=== PATIENT | male | born 1975 | race Caucasian/White ===

== ENCOUNTER 2023-07-28 13:22 | Outpatient (CLI) | payer OTHER, SELFPAY | END 2023-07-28 13:23 | disposition home or self-care (01) | LOC: ANHSURGERY 13:26 | PROVIDERS: Visit Provider Surgery | DX: Z01.818 Encounter for other preprocedural examination (principal); K42.9 Umbilical hernia without obstruction or gangrene | CPT/HCPCS: 36415; 86850; 86900; 86901 ==

== ENCOUNTER 2023-07-31 03:39 | Day surgery (SDC) | payer OTHER, SELFPAY ==
[2023-07-23 11:54] VITALS: BMI 31.1
--- NOTE | 2023-07-23 11:58 | PC.NURSE ---
Report to the Outpatient Waiting Room, entrance under the green pavilion located off [facility], at time 10:00 on date 07/31/23. Planned Procedure Time: 12:00. Time changes happen often and if your time is changed the preop area will call you the afternoon before. - You and your visitor will be asked to self-screen and do not enter if you have any COVID symptoms. - A mask is optional within the hospital at this time. Patients may have clear liquids (water, carbonated beverages, clear teas, apple juice) until 3 hours prior to surgery (9:00) with a maximum of 20 ounces. - No food from midnight until time of surgery Take the following medications with a SIP of water the morning of surgery: XANAX IF NEEDED DO NOT STOP ANY OF YOUR OTHER PRESCRIPTION MEDICATIONS PRIOR TO SURGERY ?EXCEPT THE FOLLOWING Medications to discontinue per physician: N/A Date to take last dose: N/A Please no make-up, nail lao, hairspray, perfume, deodorant, or body powder the day of surgery. No jewelry (including any body piercings) or valuables the day of surgery, leave them at home. Please take a shower or bath the night before, or the morning of, surgery with an antibacterial soap. Wear comfortable, loose fitting clothing. - Jewelry must be removed prior to entering the operating room. Rings and piercings that are not removed may be cut off. - The hospital will not accept responsibility for valuables. - Please leave all valuables, including medications, at home the day of surgery. If you are going home after surgery, a licensed rolloff driver must drive you home. - NO public transportation without another adult if you receive anesthesia. - We recommend that an adult stay with you for 24 hours following discharge. - We also recommend that you do not drive, make important decision, drink alcoholic beverages, or take any drugs that were not prescribed by your health care provider for at least 24 hours after your discharge time. Follow any additional instructions given to you from your surgeon. If you or anyone in your household have experienced Covid symptoms in the past week, please notify your surgeon or the nurse liaison at the phone number below for possible testing. Telephone instructions given to PT - CINTIA RODRIGUEZ and asked if any additional questions and then verbalized understanding. Patient advised to call surgeon office or pre surgery nurse liaison [phone] if any additional questions.
--- NOTE | 2023-07-30 16:47 | PM.SD2 ---
Same Day Admit/Disch: HPI History of Present Illness Chief complaint: Umb Hernia Narrative: Gabe Hughes Jr. is a 48 year old male who noticed a bulge just above his umbilicus last February. It is occasionally painful especially when having a bowel movement and bending over. He was seen in the office and found to have an umbilical hernia with a 2 cm defect. He is taken to surgery at this time for robotic laparoscopic repair with mesh. Patient is HIV positive. [facility] Past Medical History Medical History Anxiety HIV (human immunodeficiency virus infection) Kidney stones Seizure Surgical History Surgical History History of placement of ear tubes History of tonsillectomy and adenoidectomy Family History Family History Other Diabetes mellitus Heart disease Social History Social History Smoking status: Never smoker Alcohol intake: current Alcohol use details: SPECIAL OCCASIONS ONLY Substance use: never Substance use type: does not use Living arrangements: with family Occupation/Education: occupation Additional occupation/education comments: [employer] Division Spiritual care concerns: No Same Day Admit/Disch: Med Pre-admit Medications Home Medications Medication Instructions Recorded Confirmed Type alprazolam 0.25 mg tablet (Xanax) 0.25 mg PO QHS PRN Anxiety 05/29/23 07/23/23 History dolutegravir 50 mg-lamivudine 300 1 tablet PO HS 07/23/23 07/23/23 History mg tablet (Dovato) ketorolac 10 mg tablet 10 mg PO Q6H 4 days #16 tabs 07/31/23 Rx oxycodone-acetaminophen 5 mg-325 0.5 - 1 tablet PO Q6H PRN pain #10 07/31/23 Rx mg tablet tabs Review of Systems Review of Systems All systems reviewed & are unremarkable except as noted in HPI and below (HPI) Exam Const: General: comfortable, no acute distress, alert and awake HENMT: Head: normocephalic and atraumatic Mouth: Yes Normal oral and palatal mucosa present Eyes: Conjunctivae: conjunctivae normal Pupils: Equal, round and reactive pupils present EOM: EOMs intact bilaterally Neck: Neck: normal visual inspection, no lymphadenopathy and nontender Resp: Effort & Inspection: normal respiratory effort Auscultation: clear to auscultation bilaterally Cardio: Rate: regular rate Rhythm: regular rhythm Heart sounds: no gallops, no murmurs and no rubs GI: Inspection: non-distended, visible herniation (Umbilical) and other (Also has diastasis of midline linea alba) GI Palp: Yes Soft to palpation, No Tenderness to palpation present (GI), No Hepatomegaly present, No Splenomegaly present, Yes Hernia present umbilical < 3 cm (2 cm defect) and Yes Other GI palpation findings present (Diastasis) Auscultation: normal bowel sounds Skin: Lesions: no lesions Rashes: no rashes Neuro: General: no focal motor deficits and CN's II-XI intact bilaterally Cranial nerves: Yes Equal, round and reactive pupils present, Yes Bilaterally intact EOM present, Yes facial symmetry and Yes Midline tongue present Speech: normal speech Motor exam (neuro): 5/5 motor strength present throughout and Motor abnormalities not present Extrem: General: no clubbing, cyanosis or edema and edema Psych: Affect: normal affect Thought process: Normal thought process present Insight: Good insight present (Psych) DS: Summary Time Spent with Patient Time attestation: Total time spent providing and/or coordinating discharge services: DS: Admitting Diagnosis Discharge Date 07/31/2023 Admitting Diagnosis Symptomatic umbilical hernia, 2 cm defect. I discussed surgical treatment of this and have recommended robotic laparoscopic repair with mesh. I discussed the procedure, alternatives, risks, benefits. All questions were answered. He understands and agrees to
[2023-07-31] VITALS (10 sets, daily range): BP systolic 115–137; BP diastolic 75–98; PULSE 65–101; RESP 12–18; TEMP 36.2–36.8; O2SAT 95–100
[2023-07-31] MEDS: ACETAMINOPHEN 500 MG TABLET 1000 MG PO (10:02)
[2023-07-31] MEDS: LACTATED RINGERS 1,000 ML 30 ML IV CONT ×2 (10:29→14:45)
[2023-07-31] MEDS: KETOROLAC 15 MG/ML VIAL (*BKC) IV PUSH ×2 (10:30→15:44)
--- NOTE | 2023-07-31 11:45 | WPDHPUPDATE1 ---
History and Physical Update Update Date/Time: 07/31/23 11:45 History and Physical has been reviewed, including an updated exam of the patient. There are NO changes in the patient's condition. Risks, benefits, and alternatives have been discussed and questions answered. Patient agrees to proceed with procedure.
--- NOTE | 2023-07-31 12:00 | P.PNAN_ITS ---
Anes - Initial Pre Proc Eval Procedure: Operation Date: 07/31/23 12:00 Proposed Procedures p Robotic Laparoscopic Repair of Umbilical Hernia with Mesh - Mayito Boyer MD Date/Time: 07/31/23 12:00 Surgeon: Mayito Boyer MD Pre Op Diagnosis: Umb Hernia Patient Data Age: 48 Gender: M Height: 1.83 m Weight: 109 kg Last Vital Signs Temp 98.2 F 07/31/23 10:10 Pulse 101 H 07/31/23 10:10 Resp 18 07/31/23 10:10 BP 128/93 H 07/31/23 10:10 Pulse Ox 99 07/31/23 10:10 O2 Del Method Room Air 07/31/23 10:10 Allergies Allergy/AdvReac Type Severity Reaction Status Date / Time No Known Allergies Allergy Verified 07/31/23 10:01 Home Medications Medication Instructions Recorded Confirmed Type alprazolam 0.25 mg tablet (Xanax) 0.25 mg PO QHS PRN Anxiety 05/29/23 07/23/23 History dolutegravir 50 mg-lamivudine 300 1 tablet PO HS 07/23/23 07/23/23 History mg tablet (Dovato) Patient hx anesthesia problems: none Family hx anesthesia problems: none Results Review: All pre-operative results and documents have been reviewed as part of the pre- operative evaluation. 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 Informed Consent: The patient's anesthetic plan and its attendant risks and benefits were discussed with the patient/family/POA. Questions were solicited and answers provided to the satisfaction of the patient/family/POA.
[2023-07-31] MEDS: ceFAZolin 2 GM/D5W 50 ML 2 GM/50 ML BAG IVPB (12:03)
[2023-07-31] MEDS: BUPIVACAINE/EPINEPHRINE 0.5% 30 ML VIAL INFILTRATE (13:02)
--- NOTE | 2023-07-31 15:15 | W.PM.PROC2 ---
Procedure Note - Detailed Date of Procedure 07/31/23 Pre-op Diagnosis Umb Hernia with 2 cm defect Post-op Diagnosis Same Procedure Performed Robotic laparoscopic repair 2 cm umbilical hernia with mesh Surgeon Mayito Boyer MD Cardiovascular Lab Director Alisha BROWN Anesthesia General and Local Indications Patient has a small but tender umbilical hernia which has been painful especially within the last week. In the office, exam suggested a 2 cm umbilical hernia. He is taken to surgery now for robotic laparoscopic repair with mesh. Findings Defect was 2 cm. Hernia sac and chronically incarcerated properitoneal fat was adherent and very difficult to discern from the umbilical skin. Umbilical skin was opened and repaired robotically. 15 x [address] mesh was used for repair. Description of Procedure Patient was taken to surgery and induced into general anesthesia. A lift was placed under the left flank and the abdomen was prepped and draped. Trocars were placed in the usual fashion using NGRAIN optical trocars and a 5 mm camera. After all the ports had been placed with 8 mm robotic trocars, the robotic arms were brought into the field. The camera was docked and targeted. The instrument arms were docked and instruments placed. Surgeon went to the robotic console. Hernia was easily seen but contained quite a bit of properitoneal fat. I dissected the fatty tissue off the anterior abdominal wall down to the area of the hernia defect. I place traction on the properitoneal fat incarcerated in the hernia and then dissected all around the hernia sac. I then reduced the herniated contents. I tried to free the hernia sac from the skin but unfortunately created an opening in the skin. I then dissected just below this and removed the herniated contents and the sac back into the abdomen. I continued to dissect the properitoneal fat off the anterior abdominal wall both caudal to the defect and cephalad to the defect. I then exposed the umbilical skin injury and closed it with subcuticular 3-0 Vicryl interrupted suture. We then placed the 0 V lock suture in the abdomen and I closed the hernia defect which was 2 cm in diameter and pretty much circular. It was closed in transverse fashion with the 0 V lock. We then introduced the 10 x [address] hernia mesh. It was unrolled and the 0 V lock was passed through the center of the mesh. The mesh was placed on the anterior abdominal wall and the V lock suture was then used to secure the site of the hernia mesh to the anterior abdominal wall to the patient's left. 2-0 Stratafix was then introduced. Starting on the patient's right, a running 2-0 Stratafix was used to suture the edges of the mesh to the anterior abdominal wall. We continued this until all the edges of the periphery of the mesh were sutured to the anterior abdominal wall at the mesh was fairly taut and in good position. Three of these 2-0 Stratafix suture were required. The mesh was under mild tension and well secured to the anterior abdominal wall. There were no wrinkles or other abnormalities in the mesh placement. There was no evidence of bleeding. We then removed the suture needles. The robot was undocked after instruments were removed. Trocars were then removed. Skin wounds were closed with subcuticular 4-0 Monocryl skin suture. The wounds were dressed with Exofin surgical adhesive. The patient was awakened and taken to recovery in good condition. Sponge needle counts were correct x2. Implants 10 x [address] mesh Estimated Blood Loss -5 Drains No Packing No Pathology None sent Complications No immediate complications Condition Stable Disposition PACU [facility] Billing Surgery - Charge Forward: Surgery Billing (Robotic laparoscopic repair 2 cm umbilical hernia with mesh)
[2023-07-31] MEDS: fentaNYL CITRATE INJ (*CRX) 100 MCG/2 ML VIAL 25 MCG IV PUSH ×6 (16:23→16:50)
[2023-07-31] MEDS: oxyCODONE HCL (*CRX) 5 MG TAB IR PO (16:23)
== END 2023-07-31 17:29 | disposition home or self-care (01) ==
PROVIDERS: Visit Provider Surgery
PROC: (CPT 49592; principal; 2023-07-31 12:00)
DX: K42.0 Umbilical hernia with obstruction, without gangrene (principal); M62.08 Separation of muscle (nontraumatic), other site; Z21 Asymptomatic human immunodeficiency virus [HIV] infection status; Z79.899 Other long term (current) drug therapy
CPT/HCPCS: 49592; S2900; A9270; C1781; J0690; J1100; J1170; J1596; J1885; J2250; J2405; J2704; J3010; J7030; J7120

== ENCOUNTER 2025-01-03 08:04 | Emergency (ER) | payer OTHER, SELFPAY ==
[2025-01-03] VITALS (32 sets, daily range): BP systolic 122–149; BP diastolic 81–101; PULSE 56–96; RESP 14–20; TEMP 36.8; O2SAT 97–100
--- NOTE | ~2025-01-03 | XR_ITS ---
XR chest 1V portable Ordering provider: Brenda Wooten MD History: 49 years Male with . elev bnp . Comparison: None. FINDINGS: MEDIASTINUM: The cardiac silhouette is not enlarged. LUNGS: No infiltrates, effusions or pneumothorax. OTHER: No free air under the diaphragm. IMPRESSION: No acute cardiopulmonary pathology. Reviewed, dictated and finalized at location A.
--- NOTE | ~2025-01-03 | CT_ITS ---
EXAM: CT abdomen pelvis w con - 01/03/2025 11:13 CDT History: 49 years old Male with acute diarrhea X 6 days, syncopal episode, fever, nausea TECHNIQUE: Multidetector CT of the abdomen and pelvis with intravenous contrast. Coronal and sagitta l reformats were also provided for review. Automatic exposure control was used for this study. CONTRAST: 100 cc of Optiray 350 was used for this study. COMPARISON: None Available. FINDINGS: VISUALIZED CHEST: Visualized lungs are clear. ABDOMEN and PELVIS: LIVER: Mild focal fatty infiltration along the falciform ligament. GALLBLADDER: No calcified gallstones. BILE DUCTS: No dilatation. SPLEEN: Within normal limits. PANCREAS: Within normal limits. ADRENAL GLANDS: Within normal limits. KIDNEYS and URETERS: No hydronephrosis or hydroureter. No nephroureterolithiasis. URINARY BLADDER: Within normal limits. STOMACH and BOWEL: Multiple fluid-filled distended loops of small bowel are seen, a nonspecific findi ng and can be seen in enteritis. Normal appendix. REPRODUCTIVE ORGANS: Within normal limits. MESENTERY/PERITONEAL CAVITY: No free fluid or pneumoperitoneum. LYMPH NODES: No abdominal or pelvic lymphadenopathy. ABDOMINAL WALL: Bilateral fat-containing inguinal hernias. VASCULATURE: Within normal limits. MUSCULOSKELETAL: Multilevel degenerative changes of the spine. Multiple lucencies within the right il iac bone may represent bone cysts. Sclerotic focus in the left iliac bone may represent a bone island . IMPRESSION: 1. Multiple fluid-filled distended loops of small bowel are seen, nonspecific finding and can be see n in enteritis. Normal appendix. 2. Multiple lucencies within the right iliac bone, may represent bone cysts. Sclerotic focus in the left iliac bone may represent a bone island. Attention on follow-up imaging. Routine outpatient x-ray s of bilateral hip joints are recommended for further evaluation Reviewed, dictated and finalized at location A. IMPRESSION: 1. Multiple fluid-filled distended loops of small bowel are seen, nonspecific finding and can be seen in enteritis. Normal appendix. 2. Multiple lucencies within the right iliac bone, may represent bone cysts. S clerotic focus in the left iliac bone may represent a bone island. Attention on follow-up imaging. Routine outpatient x-rays of bilateral hip joints are recom mended for further evaluation
--- NOTE | 2025-01-03 08:51 | ECG_ITS ---
Test Date: 2025-01-03 09:27:20 Measurements Intervals [place] Rate: 74 P: 45 NH: 160 QRS: 30 QRSD: 106 T: 40 QT: 365 QTc: 407 Interpretive Statements SINUS RHYTHM DELAYED PRECORDIAL R/S TRANSITION CONSIDER INFERIOR INFARCT, AGE INDETERMINATE ABNORMAL ECG No previous ECG available for comparison Electronically Signed On 01-03-2025 09:37:09 CDT by Benjy Colindres D.O.
[2025-01-03 09:07] LABS: Basophils Percent Auto 0.3 % (0.2-1.2); Eosinophils Percent Auto 0.7 % (0-4.4); Hematocrit 44.9 % (42.0-52.0); Hemoglobin 15.1 g/dL (14.0-18.0); Immature Granulocyte Absolute 0.13 K/mm3 (0.00-0.031); Immature Granulocyte Percent A 2.2 % (0-0.5); Lymphocytes Absolute Auto 1.81 K/mm3 (0.9-3.2); Lymphocytes Percent Auto 30.8 % (18.3-44.2); Mean Corpuscular HGB Conc 33.6 g/dl (32-36); Mean Corpuscular Hemoglobin 31.6 pg (26-34); Mean Corpuscular Volume 93.9 fl (80-100); Mean Platelet Volume 9.7 fl (7.4-10.4); Monocytes Absolute Auto 0.5 K/mm3 (0.1-0.6); Monocytes Percent Auto 8.3 % (2.6-8.5); Neutrophils Absolute Auto 3.4 K/mm3 (1.3-6.7); Neutrophils Percent Auto 57.7 % (45.5-73.1); Platelet Count Result 156 k/mm3 (150-375); Red Blood Count 4.78 M/mm3 (4.6-6.20); Red Cell Distribution Width 12.3 % (11.5-14.5); White Blood Count 5.9 K/mm3 (4.5-10.0)
[2025-01-03 09:19] LABS: Alanine Aminotransferase 182 U/L (6-50); Alkaline Phosphatase 79 U/L (38-126); Anion Gap 10 mmol/L (4-12); Aspartate Amino Transferase 123 U/L (17-59); Bilirubin,Total 0.5 mg/dL (0.2-1.3); Blood Urea Nitrogen 11 mg/dL (9-20); Calcium 9.2 mg/dL (8.4-10.2); Carbon Dioxide 28 mmol/L (22-30); Chloride 102 mmol/L (98-107); Estimated CRCL calculation 84 ml/min; Estimated Glomerular Filt Rate > 60; Glucose 117 mg/dL (65-110); Potassium 3.9 mmol/L (3.4-5.0); Sodium 140 mmol/L (137-145); Total Protein 7.9 g/dL (6.3-8.2)
[2025-01-03 09:25] LABS: Add Urine Microscopic? NO; Appearance Urine Clear (Clear); Bilirubin Urine Negative (Negative); Blood Urine Negative (Negative); Color Urine Yellow (Yellow); Glucose Urine UA Negative (Negative); Ketones Urine Negative (Negative); Leukocyte Esterase Ur Negative LEU/UL (Negative); Nitrate Urine Negative (Negative); Protein Urine Negative (Negative); Specific Grav Ur 1.013 (1.001-1.035)
[2025-01-03 09:31] LABS: Troponin I < 0.012 ng/mL (0.000-0.034)
[2025-01-03 09:48] LABS: Influenza A QL RT-PCR Negative (Negative); Influenza B QL RT-PCR Negative (Negative); RSV RNA, RT-PCR Negative (Negative); SARS-CoV-2 RNA PCR Negative (Negative)
--- NOTE | 2025-01-03 10:18 | ED_ITS ---
HPI - Nausea/Vomiting/Diarrhea General Chief complaint: Nausea/Vomiting/Diarrhea Stated complaint: n/v/d, chills, syncope Time Seen by Provider: 01/03/25 08:46 Source: patient and other Mode of arrival: ambulatory Limitations: no limitations History of Present Illness HPI Narrative: Patient presents with report of nausea (no vomiting) and 9 days of diarrhea associated with fevers. Symptoms started while traveling, in [place]. Had similar foods as his partner who is not sick, no other sick contacts. He has had decreased p.o. intake. He was having some epigastric abdominal pain and also gas. He has previously had a colonoscopy which was normal. While at a baseball game he had a syncopal episode in that he became nauseated and felt like he might vomit so he stood up to walk away, going up stairs and this is when he lost muscle tone and consciousness. No alcohol had been consumed. This happened a few days ago. He became diaphoretic with movement. He does feel very fatigued lately. He had been evaluated in urgent care in tested negative for COVID and flu. He has been having myalgias particularly in his neck and head. He was initially having copious loose stools although he states this is letting up in terms of the frequency and that it is starting to become formed, soft. His skin felt sensitive at one point. While at the urgent care he was found to have some fluid in his left ear. Received IV fluids and nausea medication. He was told he had norovirus and that is liver function enzymes were elevated (doubled versus both in the 100s). He was told to switch from the ibuprofen that he had been taking 2 Tylenol he has done so. No shortness of breath. No history of heart failure. No blood in stool. Having excoriation/raw perineum from wiping. Experiencing hot flashes and excess fatigue. Confirm has a PCP. His PCP had noted that they would call in a prescription for doxy but not yet done/taking. Related Data Home Medications ?Medication ?Instructions ?Recorded ?Confirmed ?Last Taken ?Type alprazolam 0.25 mg tablet (Xanax) 0.25 mg PO QHS PRN Anxiety 05/29/23 09/23/23 Unknown History dolutegravir 50 mg-lamivudine 300 1 tablet PO HS 07/23/23 01/04/25 Unknown History mg tablet (Dovato) docusate sodium 100 mg tablet 100 mg PO TID 08/12/23 09/23/23 Unknown History tirzepatide 10 mg/0.5 mL 10 mg subcut WEEKLY 01/03/25 01/04/25 Unknown History subcutaneous pen injector (Mounjaro) Allergies Allergy/AdvReac Type Severity Reaction Status Date / Time No Known Allergies Allergy Verified 01/04/25 07:02 [facility] Past Medical History Medical History HIV (human immunodeficiency virus infection) Seizure Kidney stones Anxiety Surgical History Surgical History History of colonoscopy H/O umbilical hernia repair Robotic laparoscopic repair 2 cm umbilical hernia with mesh 07/31/23 SHAHID History of placement of ear tubes History of tonsillectomy and adenoidectomy Family History Family History Other Diabetes mellitus Heart disease Social History Social History Smoking status: Never smoker Alcohol intake: current Alcohol use details: SPECIAL OCCASIONS ONLY Substance use: never Substance use type: does not use Living arrangements: with family Occupation/Education: occupation 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 HEAD: Normocephalic, atraumatic. EYES: Non injected, non icteric ENT: Nares clear, no rhinorrhea or epistaxis. Gross auditory acuity intact. Tacky mucous membranes NECK: Supple. No meningismus. CHEST: Speaking in full sentences. No respiratory distress. HEART: Regular rate and rhythm. . ABDOMEN: Soft, nondistended. No rigidity or guarding. Not peritoneal EXTREMITIES: Normal range of motion. No lower extremity edema. SKIN: Warm, dry, no rash. NEURO: No focal deficits. Alert and oriented. Answering questions. Following commands. Normal speech without aphasia or dysarthria. PSYCH: Normal mood and affect. Course Vital Signs Vital signs: Vital Signs Pulse Oximetry 100 01/03/25 08:23 Temperature 98.2 F 01/03/25 08:43 Pulse Rate 75 01/03/25 14:31 Respiratory Rate 20 01/03/25 14:31 Blood Pressure 143/94 H 01/03/25 14:31 Pulse Oximetry 100 01/03/25 14:31 Oxygen Delivery Room Air 01/03/25 08:43 MDM - Nausea/Vomiting/Diarrhea MDM Narrative Medical decision making narrative: Patient presents with 9 days of diarrhea as well as nausea, intermittent fevers, and a syncopal episode a few days ago. In the emergency department he is afebrile with acceptable vital signs, elevated diastolic blood pressure . DIFFERENTIAL DAIGNOSIS The differential for acute ( less than 14d) diarrhea includes infectious etiologies (viral, preformed toxins, toxins formed after colonization, invasive bacteria, and parasites), medications, inflammatory causes (IBD, radiation enteritis, ischemic colitis, diverticulitis), malabsorption, secretory causes, or motility disorders. Traveler's diarrhea, food poisoning, gastroenteritis, Clostridium difficile infection, drug induced, dehydration Given history of HIV per EMR also considered: Esophagitis, enteric 0 colitis, GI bleed (CMV, Kaposi, lymphoma), diarrhea secondary to Cryptosporidum, Isospora; hepatitis, proctitis [place] Syncope Rule: Congestive heart failure history: 0* (see below) Hematocrit <30%: No EKG abnormal (changed or any non-sinus rhythm): No SOB symptoms: No SBP <90mmHg at triage: No LFTs are elevated in the 100s with no prior for comparison other than patient noted that they were similar range when seen at urgent care recently. BNP is borderline as it approaches the reference range of the assay for patient's age to suggest acute heart failure. No evidence of volume overload on exam or chest xray. Patient's heart rate increases by nearly 40 and his systolic blood pressure changes by nearly 20 on orthostatic assessment. Will give 2nd L IV fluids. Orthostats still similar although patient feeling much better. Discussed possiblity of observation admission for further IV fluids but patient can otherwise tolerate p.o. and feels able to do so at home. This is very reasonable given his age. Notified of the incidental findings on CT scan regarding bones. Lab Data Attestation: I reviewed the patient's lab results. 01/03/25 08:59 01/03/25 08:59 Labs: Lab Results 01/03/25 01/03/2501/03/25 Range/Units 08:59 09:00 09:14 WBC 5.9 (4.5-10.0) K/mm3 RBC 4.78 (4.6-6.20) M/mm3 Hgb 15.1 (14.0-18.0) g/dL Hct 44.9 (42.0-52.0) % MCV 93.9 (80-100) fl MCH 31.6 (26-34) pg MCHC 33.6 (32-36) g/dl RDW 12.3 (11.5-14.5) % Plt Count 156 (150-375) k/mm3 MPV 9.7 (7.4-10.4) fl Immature Gran % (Auto) 2.2 H (0-0.5) % Neut % (Auto) 57.7 (45.5-73.1) % Lymph % (Auto) 30.8 (18.3-44.2) % Centre % (Auto) 8.3 (2.6-8.5) % Eos % (Auto) 0.7 (0-4.4) % Baso % (Auto) 0.3 (0.2-1.2) % Lymph # (Auto) 1.81 (0.9-3.2) K/mm3 [place] # (Auto) 0.5 (0.1-0.6) K/mm3 Eos # (Auto) 0.0 (0-0.3) K/mm3 Baso # (Auto) 0.0 (0.0-0.1) K/mm3 Abs Immat Gran (auto) 0.13 H (0.00-0.031) K/mm3 Absolute Neuts (auto) 3.4 (1.3-6.7) K/mm3 Absolute Nucleated RBC 0.000 (0.0-0.012) K/mm3 Nucleated RBC % 0.0 (0.0-0.2) % PT 12.5 (11.1-14.7) Seconds INR 0.9 APTT 31.8 (22.3-36.8) Seconds Sodium 140 (137-145) mmol/L Potassium 3.9 (3.4-5.0) mmol/L Chloride 102 (98-107) mmol/L Carbon Dioxide 28 (22-30) mmol/L Anion Gap 10 (4-12) mmol/L BUN 11 (9-20) mg/dL Creatinine 1.03 (0.7-1.3) mg/dL Estim Creat Clear Calc 84 ml/min Estimated GFR > 60 (59 - ) Glucose 117 H (65-110) mg/dL Calcium 9.2 (8.4-10.2) mg/dL Magnesium 2.1 (1.6-2.3) mg/dL Total Bilirubin 0.5 (0.2-1.3) mg/dL AST 123 H (17-59) U/L ALT 182 H (6-50) U/L Alkaline Phosphatase 79 (38-126) U/L Troponin I < 0.012 (0.000-0.034) ng/mL NT-Pro-B Natriuret Pep 413 H (19.9-100) pg/mL Total Protein 7.9 (6.3-8.2) g/dL Albumin 4.0 (3.5-5.1) g/dL Lipase 217 (23-300) U/L Urine Color (Yellow) Urine Appearance (Clear) Urine pH (5.0-9.0) Ur Specific [place] (1.001-1.035) Urine Protein (Negative) mg/dL Urine Glucose (UA) (Negative) mg/dL Urine Ketones (Negative) mg/dL Ur Blood (Man) (Negative) Urine Nitrate (Negative) Urine Bilirubin (Negative) Urine Urobilinogen (<2.0) mg/dL Leukocyte Esterase Rfl (Negative) ROB/UL Urine Opiates Screen Negative (Negative) Urine Methadone Screen Negative (Negative) Acetaminophen < 10 L (10-30) ug/mL Ur Barbiturates Screen Negative (Negative) Ur Phencyclidine Scrn Negative (Negative) Ur Amphetamine Screen Negative (Negative) U Benzodiazepines Scrn Negative (Negative) Urine Cocaine Screen Negative (Negative) U Cannabinoids Screen Negative (Negative) C. difficile (PCR) (NEGATIVE) Influenza A (RT-PCR) Negative (Negative) Influenza B (RT-PCR) Negative (Negative) RSV (RT-PCR) Negative (Negative) SARS-CoV-2 RNA (RT-PCR) Negative (Negative) 01/03/25 01/03/25 Range/Units 09:15 11:25 WBC (4.5-10.0) K/mm3 RBC (4.6-6.20) M/mm3 Hgb (14.0-18.0) g/dL Hct (42.0-52.0) % MCV (80-100) fl MCH (26-34) pg MCHC (32-36) g/dl RDW (11.5-14.5) % Plt Count (150-375) k/mm3 MPV (7.4-10.4) fl Immature Gran % (Auto) (0-0.5) % Neut % (Auto) (45.5-73.1) % Lymph % (Auto) (18.3-44.2) % Centre % (Auto) (2.6-8.5) % Eos % (Auto) (0-4.4) % Baso % (Auto) (0.2-1.2) % Lymph # (Auto) (0.9-3.2) K/mm3 [place] # (Auto) (0.1-0.6) K/mm3 Eos # (Auto) (0-0.3) K/mm3 Baso # (Auto) (0.0-0.1) K/mm3 Abs Immat Gran (auto) (0.00-0.031) K/mm3 Absolute Neuts (auto) (1.3-6.7) K/mm3 Absolute Nucleated RBC (0.0-0.012) K/mm3 Nucleated RBC % (0.0-0.2) % PT (11.1-14.7) Seconds INR APTT (22.3-36.8) Seconds Sodium (137-145) mmol/L Potassium (3.4-5.0) mmol/L Chloride (98-107) mmol/L Carbon Dioxide (22-30) mmol/L Anion Gap (4-12) mmol/L BUN (9-20) mg/dL Creatinine (0.7-1.3) mg/dL Estim Creat Clear Calc ml/min Estimated GFR (59 - ) Glucose (65-110) mg/dL Calcium (8.4-10.2) mg/dL Magnesium (1.6-2.3) mg/dL Total Bilirubin (0.2-1.3) mg/dL AST (17-59) U/L ALT (6-50) U/L Alkaline Phosphatase (38-126) U/L Troponin I (0.000-0.034) ng/mL NT-Pro-B Natriuret Pep (19.9-100) pg/mL Total Protein (6.3-8.2) g/dL Albumin (3.5-5.1) g/dL Lipase (23-300) U/L Urine Color Yellow (Yellow) Urine Appearance Clear (Clear) Urine pH 7.0 (5.0-9.0) Ur Specific [place] 1.013 (1.001-1.035) Urine Protein Negative (Negative) mg/dL Urine Glucose (UA) Negative (Negative) mg/dL Urine Ketones Negative (Negative) mg/dL Ur Blood (Man) Negative (Negative) Urine Nitrate Negative (Negative) Urine Bilirubin Negative (Negative) Urine Urobilinogen 1.0 (<2.0) mg/dL Leukocyte Esterase Rfl Negative (Negative) ROB/UL Urine Opiates Screen (Negative) Urine Methadone Screen (Negative) Acetaminophen (10-30) ug/mL Ur Barbiturates Screen (Negative) Ur Phencyclidine Scrn (Negative) Ur Amphetamine Screen (Negative) U Benzodiazepines Scrn (Negative) Urine Cocaine Screen (Negative) U Cannabinoids Screen (Negative) C. difficile (PCR) Negative (NEGATIVE) Influenza A (RT-PCR) (Negative) Influenza B (RT-PCR) (Negative) RSV (RT-PCR) (Negative) SARS-CoV-2 RNA (RT-PCR) (Negative) Imaging Data Radiologist's impression: IMPRESSION: 1. Multiple fluid-filled distended loops of small bowel are seen, nonspecific finding and can be seen in enteritis. Normal appendix. 2. Multiple lucencies within the right iliac bone, may represent bone cysts. Sclerotic focus in the left iliac bone may represent a bone island. Attention on follow-up imaging. Routine outpatient x-rays of bilateral hip joints are recommended for further evaluation IMPRESSION: No acute cardiopulmonary pathology. ECG Data EKG #1: Attestation: I personally reviewed and interpreted this ECG as follows: ECG completion date: 01/03/25 ECG completion time: 09:27 Interpretation: Normal sinus rhythm at a rate of 74 beats per minute. TN interval 160. QRS 106. QT/QTC 365/393. Good R-wave progression across the precordial leads. T- wave flattening in 3 but otherwise upright in normal in contiguous inferior leads. No other T-wave inversions. Normal axis. Normal ECG. Discharge Plan Discharge Clinical Impression: Acute diarrhea, Transaminitis, Enteritis, Abnormal x-ray of pelvis, Elevated brain natriuretic peptide (BNP) level Patient Disposition: Home Condition: Stable Instructions: Antibiotic Form, Acute Diarrhea (ED), Enteritis (ED), Transaminitis (ED) Additional Instructions: As we discussed, your orthostatics vital signs were still slightly concerning however your received 2 L of IV fluids and were otherwise feeling better. Continue what you have been doing in terms of rest and maintain your hydration. Recommend following up with your primary care physician regarding the elevated BNP and liver enzymes. We discussed the incidental finding of : Multiple lucencies within the right iliac bone, may represent bone cysts. Sclerotic focus in the left iliac bone may represent a bone island. Attention on follow-up imaging. Routine outpatient x- rays of bilateral hip joints are recommended for further evaluation Your primary care physician can help arrange this. Do not hesitate to return to the emergency department any new, worsening, or unmanaged symptoms. Patient Language: [place] Island[place] Prescriptions: No Action alprazolam [Xanax] 0.25 mg tablet 0.25 mg PO QHS PRN (Reason: Anxiety) docusate sodium 100 mg tablet 100 mg PO TID Dovato 50-300 mg tablet 1 tablet PO HS Mounjaro 10 mg/0.5 mL pen injector 10 mg subcut WEEKLY simethicone 125 mg capsule 125 mg PO QID Qty: 20 0RF Rx Instructions: administer after meals and at bedtime dicyclomine 20 mg tablet 20 mg PO QID Qty: 20 0RF Follow-up/Referrals: PHYSICIAN,HAND SAMPLE MAKER [Primary Care Provider] - Stand Alone Forms: Work/School Release IP Time of Disposition: 14:43
[2025-01-03 10:40] LABS: Lipase 217 U/L (23-300); Magnesium 2.1 mg/dL (1.6-2.3)
[2025-01-03 10:49] LABS: NT Pro B Type Natriuretic Pept 413 pg/mL (19.9-100)
[2025-01-03 11:08] LABS: Amphetamine Screen Urine Negative (Negative); Barbiturate Screen Urine Negative (Negative); Benzodiazepines Screen Urine Negative (Negative); Cannabinoid Screen Urine Negative (Negative); Cocaine Screen Urine Negative (Negative); Methadone Screen Urine Negative (Negative); Opiate Screen Urine Negative (Negative); Phencyclidine Screen Urine Negative (Negative)
[2025-01-03] MEDS: ONDANSETRON INJ 4 MG/2 ML VIAL IV PUSH (11:14)
[2025-01-03] MEDS: SODIUM CHLORIDE 0.9% IV 1,000 ML 999 ML IV CONT ×2 (11:15→12:51)
[2025-01-03 11:58] LABS: Acetaminophen < 10 ug/mL (10-30)
[2025-01-03 12:00] LABS: INR 0.9; Prothrombin Time 12.5 Seconds (11.1-14.7)
[2025-01-03 12:01] LABS: Partial Thromboplastin Time 31.8 Seconds (22.3-36.8)
[2025-01-03 12:34] LABS: Toxigenic C. Diff NEGATIVE (NEGATIVE)
== END 2025-01-03 14:56 | disposition home or self-care (01) ==
PROVIDERS: Emergency Provider Student in an Organized Health Care Education/Training Program
DX: K52.9 Noninfective gastroenteritis and colitis, unspecified (principal); R74.01 Elevation of levels of liver transaminase levels; R79.89 Other specified abnormal findings of blood chemistry; R93.5 Abnormal findings on diagnostic imaging of other abdominal regions, including retroperitoneum; Z20.822 Contact with and (suspected) exposure to COVID-19; F41.9 Anxiety disorder, unspecified; Z21 Asymptomatic human immunodeficiency virus [HIV] infection status; Z87.442 Personal history of urinary calculi; R94.31 Abnormal electrocardiogram [ECG] [EKG]; Z79.899 Other long term (current) drug therapy; Z79.85 Long-term (current) use of injectable non-insulin antidiabetic drugs
CPT/HCPCS: 36415; 71045; 74177; 80053; 80143; 80307; 81003; 83690; 83735; 83880; 84484; 85025; 85610; 85730; 87045; 87177; 87209; 87427; 87449; 87493; 87637; 93005; 96361; 96374; 99284; J2405; J7030; Q9967

== ENCOUNTER 2025-01-04 06:51 | Emergency (ER) | payer OTHER, SELFPAY ==
[2025-01-04] VITALS (12 sets, daily range): BP systolic 126–134; BP diastolic 76–114; PULSE 57–92; RESP 10–18; TEMP 36.4; O2SAT 98–100
--- NOTE | ~2025-01-04 | US_ITS ---
Limited Abdominal Sonogram: Real-time sonographic imaging of the right upper quadrant was performed. Clinical History: Pain with eating Findings: The liver appears normal with no evidence of mass lesion or bile duct dilatation. Main por marilee vein demonstrates normal direction of flow. The gallbladder is well distended, and appears normal with no evidence of gallstone or wall thickening. The common bile duct measures 4 mm. The visualize d pancreas, aorta, and IVC are unremarkable. Impression: No significant abnormality seen. Reviewed, dictated and finalized at location . Impression: No significant abnormality seen.
--- NOTE | 2025-01-04 07:01 | ECG_ITS ---
Test Date: 2025-01-04 06:59:22 Measurements Intervals [place] Rate: 79 P: 61 ID: [id number] QRS: 40 QRSD: 101 T: 53 QT: 359 QTc: 413 Interpretive Statements SINUS RHYTHM MINIMAL Q WAVES- INFERIOR LEADS BASELINE ARTIFACT- I, III, AVL, V1-V3 BORDERLINE ECG Compared to ECG 01/03/2025 09:27:20 NO SIGNIFICANT CHANGE Electronically Signed On 01-04-2025 07:10:57 CDT by Benjy Colindres D.O.
[2025-01-04 07:09] LABS: Basophils Percent Auto 0.5 % (0.2-1.2); Eosinophils Percent Auto 0.5 % (0-4.4); Hematocrit 41.8 % (42.0-52.0); Hemoglobin 14.4 g/dL (14.0-18.0); Immature Granulocyte Absolute 0.12 K/mm3 (0.00-0.031); Immature Granulocyte Percent A 1.4 % (0-0.5); Lymphocytes Absolute Auto 2.06 K/mm3 (0.9-3.2); Lymphocytes Percent Auto 23.9 % (18.3-44.2); Mean Corpuscular HGB Conc 34.4 g/dl (32-36); Mean Corpuscular Hemoglobin 32.1 pg (26-34); Mean Corpuscular Volume 93.1 fl (80-100); Mean Platelet Volume 8.8 fl (7.4-10.4); Monocytes Absolute Auto 0.5 K/mm3 (0.1-0.6); Monocytes Percent Auto 6.1 % (2.6-8.5); Neutrophils Absolute Auto 5.8 K/mm3 (1.3-6.7); Neutrophils Percent Auto 67.6 % (45.5-73.1); Platelet Count Result 181 k/mm3 (150-375); Red Blood Count 4.49 M/mm3 (4.6-6.20); Red Cell Distribution Width 12.3 % (11.5-14.5); White Blood Count 8.6 K/mm3 (4.5-10.0)
[2025-01-04 07:24] LABS: Alanine Aminotransferase 124 U/L (6-50); Albumin Level 3.9 g/dL (3.5-5.1); Alkaline Phosphatase 80 U/L (38-126); Anion Gap 8 mmol/L (4-12); Aspartate Amino Transferase 63 U/L (17-59); Bilirubin,Total 0.6 mg/dL (0.2-1.3); Blood Urea Nitrogen 8 mg/dL (9-20); Calcium 8.9 mg/dL (8.4-10.2); Carbon Dioxide 28 mmol/L (22-30); Chloride 103 mmol/L (98-107); Estimated CRCL calculation 87 ml/min; Estimated Glomerular Filt Rate > 60; Glucose 110 mg/dL (65-110); Lipase 249 U/L (23-300); Potassium 3.7 mmol/L (3.4-5.0); Sodium 139 mmol/L (137-145); Total Protein 7.7 g/dL (6.3-8.2)
[2025-01-04 07:34] LABS: Giant Platelets Present; Large Platelets Present; Platelet Estimate Adequate (Adequate)
[2025-01-04 07:35] LABS: Atypical Lymphocytes Present; Schistocytes None Seen
[2025-01-04 07:36] LABS: Troponin I < 0.012 ng/mL (0.000-0.034)
[2025-01-04] MEDS: MORPHINE SULFATE (*CRX) 4 MG/ML INJ IV PUSH (07:46)
[2025-01-04] MEDS: ONDANSETRON INJ 4 MG/2 ML VIAL IV PUSH (07:46)
[2025-01-04] MEDS: SODIUM CHLORIDE 0.9% IV 1,000 ML 999 ML IV CONT (07:47)
--- NOTE | 2025-01-04 10:51 | ED_ITS ---
HPI - Nausea/Vomiting/Diarrhea General Chief complaint: Nausea/Vomiting/Diarrhea Stated complaint: n/v with back pain Time Seen by Provider: 01/04/25 06:59 History of Present Illness HPI Narrative: Patient is a 49-year-old male who presents ER with nausea vomiting. He had abdominal pain epigastrium that radiated to his back when eating. He has been dealing with diarrhea as well as vomiting last week. No fevers or chills. No syncope today. Did have some weakness while at a baseball game the other day. He has been in the ER evaluated with a CT scan that showed antritis. Liver enzymes were also elevated previously. Last dose of meds are was 1 week ago. Related Data Home Medications ?Medication ?Instructions ?Recorded ?Confirmed ?Last Taken ?Type alprazolam 0.25 mg tablet (Xanax) 0.25 mg PO QHS PRN Anxiety 05/29/23 09/23/23 Unknown History dolutegravir 50 mg-lamivudine 300 1 tablet PO HS 07/23/23 01/04/25 Unknown History mg tablet (Dovato) docusate sodium 100 mg tablet 100 mg PO TID 08/12/23 09/23/23 Unknown History tirzepatide 10 mg/0.5 mL 10 mg subcut WEEKLY 01/03/25 01/04/25 Unknown History subcutaneous pen injector (Mounjaro) Allergies Allergy/AdvReac Type Severity Reaction Status Date / Time No Known Allergies Allergy Verified 01/04/25 07:02 Review of Systems 2 Review of Systems: All systems reviewed & are unremarkable except as noted in HPI and below Constitutional: Constitutional: Reports no additional constitutional complaints Cardiovascular: Cardiovascular: Reports no additional cardiovascular complaints Respiratory: Respiratory: Reports no additional respiratory complaints Gastrointestinal: Gastrointestinal: Reports no additional gastrointestinal complaints Genitourinary: Genitourinary: Reports no additional male genitourinary complaints [facility] Past Medical History Medical History Anxiety HIV (human immunodeficiency virus infection) Kidney stones Seizure Surgical History Surgical History H/O umbilical hernia repair Robotic laparoscopic repair 2 cm umbilical hernia with mesh 07/31/23 SHAHID History of placement of ear tubes History of tonsillectomy and adenoidectomy Family History Family History Other Diabetes mellitus Heart disease Social History Social History Smoking status: Never smoker Alcohol intake: current Alcohol use details: SPECIAL OCCASIONS ONLY Substance use: never Substance use type: does not use Living arrangements: with family Occupation/Education: occupation 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 HEAD: Normocephalic, atraumatic. ENT: Mucous membranes moist. NECK: Supple. CHEST: Clear to auscultation. No respiratory distress. HEART: Regular rate and rhythm. Normal peripheral pulses. ABDOMEN: Soft, mild epigastric discomfort without guarding, nondistended. EXTREMITIES: Normal range of motion. No edema. SKIN: Warm, dry, no rash. NEURO: Alert and oriented x3. PSYCH: Normal mood and affect. Course Course Emergency Course: Liver enzymes trending down. Otherwise labs are unremarkable. Recommend not taking next Friday are dose. Follow-up with PCP. Patient has Zofran at home. Discharge with dicyclomine and simethicone. Vital Signs Vital signs: Vital Signs Temperature 97.6 F 01/04/25 06:54 Pulse Rate 92 01/04/25 06:54 Respiratory Rate 13 01/04/25 06:54 Blood Pressure 126/114 H 01/04/25 06:54 Pulse Oximetry 100 01/04/25 06:54 Temperature 97.6 F 01/04/25 06:54 Pulse Rate 57 L 01/04/25 10:05 Respiratory Rate 18 01/04/25 10:05 Blood Pressure 130/85 01/04/25 10:05 Pulse Oximetry 100 01/04/25 10:05 MDM - Nausea/Vomiting/Diarrhea Lab Data 01/04/25 07:03 01/04/25 07:03 Labs: Lab Results 01/04/25 Range/Units 07:03 WBC 8.6 (4.5-10.0) K/mm3 RBC 4.49 L (4.6-6.20) M/mm3 Hgb 14.4 (14.0-18.0) g/dL Hct 41.8 L (42.0-52.0) % MCV 93.1 (80-100) fl MCH 32.1 (26-34) pg MCHC 34.4 (32-36) g/dl RDW 12.3 (11.5-14.5) % Plt Count 181 (150-375) k/mm3 MPV 8.8 (7.4-10.4) fl Immature Gran % (Auto) 1.4 H (0-0.5) % Neut % (Auto) 67.6 (45.5-73.1) % Lymph % (Auto) 23.9 (18.3-44.2) % [place] % (Auto) 6.1 (2.6-8.5) % Eos % (Auto) 0.5 (0-4.4) % Baso % (Auto) 0.5 (0.2-1.2) % Lymph # (Auto) 2.06 (0.9-3.2) K/mm3 [place] # (Auto) 0.5 (0.1-0.6) K/mm3 Eos # (Auto) 0.0 (0-0.3) K/mm3 Baso # (Auto) 0.0 (0.0-0.1) K/mm3 Abs Immat Gran (auto) 0.12 H (0.00-0.031) K/mm3 Absolute Neuts (auto) 5.8 (1.3-6.7) K/mm3 Absolute Nucleated RBC 0.000 (0.0-0.012) K/mm3 Band Neutrophils % Not Reportable Nucleated RBC % 0.0 (0.0-0.2) % Atypical Lymphocytes Present Platelet Estimate Adequate (Adequate) Large Platelets Present Giant Platelets Present Schistocytes None seen Sodium 139 (137-145) mmol/L Potassium 3.7 (3.4-5.0) mmol/L Chloride 103 (98-107) mmol/L Carbon Dioxide 28 (22-30) mmol/L Anion Gap 8 (4-12) mmol/L BUN 8 L (9-20) mg/dL Creatinine 0.99 (0.7-1.3) mg/dL Estim Creat Clear Calc 87 ml/min Estimated GFR > 60 (59 - ) Glucose 110 (65-110) mg/dL Calcium 8.9 (8.4-10.2) mg/dL Total Bilirubin 0.6 (0.2-1.3) mg/dL AST 63 H (17-59) U/L ALT 124 H (6-50) U/L Alkaline Phosphatase 80 (38-126) U/L Troponin I < 0.012 (0.000-0.034) ng/mL Total Protein 7.7 (6.3-8.2) g/dL Albumin 3.9 (3.5-5.1) g/dL Lipase 249 (23-300) U/L Imaging Data Radiologist's impression: ITS Impressions Upper Quadrant Ultrasound 01/04/25 08:14 Impression: No significant abnormality seen. Discharge Plan Discharge Clinical Impression: Abdominal bloating with cramps Patient Disposition: Home Condition: Stable Instructions: Abdominal Pain (ED) Additional Instructions: Return to the emergency department if you develop severe abdominal pain, severe nausea and vomiting to the point where you are unable to keep down fluids, if you develop chest pain or difficulty breathing, blood in your stool, dizziness or fainting, or if you develop any other new or concerning symptoms as these could be signs of more serious medical illness. Try to stay well hydrated. Patient Language: [place] Prescriptions: New simethicone 125 mg capsule 125 mg PO QID Qty: 20 0RF Rx Instructions: administer after meals and at bedtime dicyclomine 20 mg tablet 20 mg PO QID Qty: 20 0RF No Action alprazolam [Xanax] 0.25 mg tablet 0.25 mg PO QHS PRN (Reason: Anxiety) docusate sodium 100 mg tablet 100 mg PO TID Dovato 50-300 mg tablet 1 tablet PO HS Mounjaro 10 mg/0.5 mL pen injector 10 mg subcut WEEKLY Follow-up/Referrals: Anika Carrillo DO [Physician] - 1 Week UNKNOWN,DOCTOR [Primary Care Provider] -
== END 2025-01-04 11:11 | disposition home or self-care (01) ==
PROVIDERS: Emergency Medicine; Emergency Provider Emergency Medicine
DX: R14.0 Abdominal distension (gaseous) (principal); R10.9 Unspecified abdominal pain; F41.9 Anxiety disorder, unspecified; Z21 Asymptomatic human immunodeficiency virus [HIV] infection status; Z87.442 Personal history of urinary calculi; Z79.899 Other long term (current) drug therapy; Z79.85 Long-term (current) use of injectable non-insulin antidiabetic drugs
CPT/HCPCS: 36415; 76705; 80053; 83690; 84484; 85025; 93005; 96361; 96374; 96375; 99284; J2270; J2405; J7030

== ENCOUNTER 2025-01-26 13:18 | Emergency (ER) | payer OTHER, SELFPAY ==
--- NOTE | ~2025-01-26 | CT_ITS ---
CT pelvis w con Ordering provider: Judy Mc MD History: . perianal abscess? h/o HIV . Comparison: January 03, 2025 Technique: CT pelvis without oral and IV contrast. . Automated exposure control and iterative recons truction technique were employed. The dose-length product was 389.01 mGy-cm. 100 mL Omnipaque 350 was given IV. Findings: BONES: No pelvic fracture or hip dislocation. Sclerotic lesion seen in the left iliac bone. Age appro priate degenerative changes of the visualized lower lumbar spine. The hip and sacroiliac joint spaces are well maintained. SUPERFICIAL SOFT TISSUES: Minimal fat stranding seen in the right and left buttock medially with no d efinite abscess formation. Bilateral inguinal lymph nodes are seen with the largest lymph node on the right side measures 2.2x1.2 cm. The left 1.5x 2.8 cm. Small bilateral inguinal hernias with fat cont ent. Otherwise, normal PELVIC ORGANS: The bladder is normal. No definite perianal abscess seen. Thickening in the skin in the medial right buttock is noted which may be inflammatory in nature. VISUALIZED BOWEL AND MESENTERY: Normal. No free air or free fluid. No lymphadenopathy. RETROPERITONEUM: Mild atheromatous disease. IMPRESSION: Inflammatory changes in the medial aspect of both buttocks with no definite perianal abscess. Follow- up advised. Inflammatory changes are also seen in the skin in the medial aspect of the buttocks more prominent on the right side. Bilateral inguinal lymphadenopathy. Bilateral small fat-containing inguinal hernias. Reviewed, dictated and finalized at location A. IMPRESSION: Inflammatory changes in the medial aspect of both buttocks with no definite per ianal abscess. Follow-up advised. Inflammatory changes are also seen in the skin in the medial aspect of the butt ocks more prominent on the right side. Bilateral inguinal lymphadenopathy. Bilateral small fat-containing inguinal hernias.
--- OUTSIDE RECORDS SUMMARY | 2025-01-26 13:21 | XMS_ITS | Data Portability ---
Author Organization [facility], [facility] Address [facility] [place] [address] Care Team Providers Care Glass Blowing Instructor Name Role Phone AGUSTIN WATT Referring Provider [phone] Encounter Date Assessment Date Assessment LastModified by Organization Details LastModified Time 04/09/2021 04/09/2021 RTC as scheduled or prn increased s/s. [email or web address] Not available 04/09/2021 13:33:02 07/02/2021 07/02/2021 RTC as scheduled or prn increased s/s [email or web address] Not available 07/02/2021 11:34:59 10/11/2021 10/11/2021 RTC as scheduled or prn increased s/s. kpercent Not available 10/12/2021 10:22:07 01/03/2022 01/03/2022 RTC as scheduled or prn increased s/s [email or web address] Not available 01/03/2022 12:20:36 Plan of Treatment Reminders Order Date Submit Date Provider Last Modified By Organization Details Last Modified Time Details Appointments None recorded. Lab vitamin B12, serum 2021 022 CATLIN [facility], [address], [place], [address], 05:01:34 HbA1c (hemoglobin A1c), blood 2021 022 CATLIN [facility], [address] [place], [address], 3 05:01:26 CMP, serum or plasma 2021 [facility], [address], [place], [address], 3 05:01:[address] [facility], [address], [place], [address], 3 05:01:13 T4, free, serum 2021 [facility], [address], [place], [address], 3 05:01:16 TSH, serum or plasma [address] [facility], [address], [place], [address], 3 05:01:12 urinalysis, complete 2021 [facility], [address], [place], [address], 3 05:01:49 gamma-gluta myl transferase (ggt), serum 2021 [facility], [address], [place], [address], 3 05:01:07 testosteron e, free + total, serum 2021 [facility], [address], [place], [address], 3 05:01:43 lipid panel, serum 2021 [facility], [address], [place], [address], 3 05:01:24 lymphocyte subset, flow cytometry (OBS) 2021 [facility], [address], [place], [address], 2 08:45:46 HbA1c (hemoglobin A1c), blood [address] [facility], [address], [place], [address], 3 05:01:42 CMP, serum or plasma [address] [facility], [address], [place], [address], 3 05:01:45 CBC 2021 022 [facility], [address], [place], [address], 3 05:01:50 TSH, serum or plasma 2021 022 [facility], [address], [place], [address], 3 05:01:25 T4, free, serum 2021 022 [facility], [address], [place], [address], 3 05:01:23 gamma-gluta myl transferase (ggt), serum 2021 022 [facility], [address], [place], [address], 3 05:01:32 lipid panel, serum [address] [facility], [address], [place], [address], 3 05:01:28 HbA1c (hemoglobin A1c), blood [address] [facility], [address], [place], [address], 2 09:00:06 CMP, serum or plasma [address] [facility], [address], [place], [address], 2 09:00:06 urinalysis, complete [address] [facility], [address], [place], [address], 2 09:00:06 TSH, serum or plasma [address] [facility], [address], [place], [address], 2 09:00:06 T4, free, serum [address] [facility], [address], [place], [address], 2 09:00:[address] [facility], [address], [place], [address], 2 09:00:07 lymphocyte subset, flow cytometry (OBS) 2020 022 [email or web address] [facility], [address], [place], [address], 2 09:08:19 lipid panel, serum 2020 022 [facility], [address], [place], [address], 2 09:00:06 testosteron e, free + total, serum 2020 022 [facility], [address], [place], [address], 2 09:00:06 vitamin B12, serum 2020 022 [facility], [address], [place], [address], 2 09:00:06 vitamin D, 25-hydroxy, total, serum 2020 021 [email or web address] [facility], [address], [place], [address], 2 09:27:44 HbA1c (hemoglobin A1c), blood 2020 022 [email or web address] [facility], [address], [place], [address], 2 09:27:41 CMP, serum or plasma 2020 022 [email or web address] [facility], [address], [place], [address], 2 09:27:41 CBC 2020 022 [email or web address] [facility], [address], [place], [address], 2 09:27:42 PSA, serum or plasma 2020 022 [email or web address] [facility], [address], [place], [address], 2 09:27:43 urinalysis, complete 2020 022 [email or web address] [facility], [address], [place], [address], 2 09:27:42 TSH, serum or plasma 2020 022 [email or web address] [facility], [address] [place], [address], 2 09:27:42 T4, free, serum 2020 022 [email or web address] [address] [facility], [address], [place], [address], 2 09:27:42 lipid panel, serum 2020 022 [email or web address] [address] [facility], [address] [place], [address], 2 09:27:43 gamma-gluta myl transferase (ggt), serum 2020 022 [facility], [address], [place], [address], 2 09:27:43 lymphocyte subset, flow cytometry (OBS) 2020 022 [email or web address] [facility], [address], [place], [address], 09:27:43 Referral None recorded. Procedures None recorded. Surgeries None recorded. Imaging US, echocardi lilian 2020 021 [email or web address] [facility], [facility], All Locations, [place], [address], 14:13:05 Medication Orders sildenafil 100 mg tablet 2021 022 CATLIN [facility] #73228, [address] [place] [address], [id number], 12:22:22 lisinopril 20 mg tablet 2021 CATLIN [facility]06425, [address] [place] [address], [id number], 10:24:17 Atripla 600 mg-200 mg-300 mg tablet 2021 CATLIN [facility] #12981, [address] [place] [address], [id number], 11:14:10 lisinopril 20 mg tablet 2020 021 CATLIN [facility] #20612, [address] [place] [address], [id number], 13:16:53 alprazolam 0.25 mg tablet 2020 021 [email or web address] [facility], [address] [place] [address], [id number], 07:42:58 fluoxetine 20 mg capsule 2020 021 CATLIN [facility] #62309, [address] [place] [address], [id number], 13:16:38 Atripla 600 mg-200 mg-300 mg tablet 2020 021 [facility], [address], [place], [place], [id number], 13:16:38 Patient TargetsNo targets recorded. Patient Instructions Encounter Date Encounter Id Patient Instructions Last Modified By Organization Details Last Modified Time 04/09/2021 [id number] Low fat, low CHO diet. Increase activity as tolerated. Continue current meds. F/u as scheduled with specialists. [email or web address] Not available 04/09/2021 13:33:06 07/02/2021 [id number] starting a weigh t loss plan: care instructions [email or web address] Not available 07/09/2021 08:40:02 starting a weigh t loss plan: care instructions [email or web address] Not available 07/09/2021 08:40:02 Anticipatory Guidance for preventive visits [email or web address] Not available 07/02/2021 11:32:12 Low fat, low CHO diet. Increase activity as tolerated. Continue current meds. F/u as scheduled with specialists. [email or web address] Not available 07/02/2021 11:35:09 10/11/2021 [id number] Low fat, low CHO diet. Increase activity as tolerated. Continue current meds. F/u as scheduled with specialists. [email or web address] Not available 10/12/2021 10:22:18 01/03/2022 [id number] Low fat, low CHO diet. Increase activity as tolerated. Continue current meds. F/u as scheduled with specialists. [email or web address] Not available 01/03/2022 12:20:44 Reason for Referral None Reported. Results Created Date Observation Date Name Description Value Unit Range Abnormal Flag Note LastModifiedBy Organization Detail LastModifiedTime Result Notes None recorded. Problems Name Problem SNOMED Code Status Onset Date Resolution Date Notes Provider Name and Address Organization Details Recorded Time Primary erectile dysfunction 499876729 Active 2021 GLORIA Powers - [facility], [facility] 11:49:05 Body mass index 30+ - obesity 943071804 Active 2018 Not Available [facility] 12:00:14 Human immunodeficie ncy virus infection 63832536 Active 2020 Not Available [facility] 12:00:14 Insomnia 641665205 Active 2020 Not Available [facility] 12:00:14 Hyperglycemia 93269552 Active 2020 Not Available [facility] 12:00:14 Anxiety 98926061 Active 2020 Not Available [facility] 12:00:14 Hypertensive disorder 26467929 Active 2020 Tameka Mason, 2ND PRESSMAN [address] [facility] [address], [place], [address] , [facility] - [employer] 18:10:53 Problem Notes None recorded. Procedures Surgical History Date Name Laterality Status Provider Name and Address Organization Details Recorded Time Tonsillectomy completed Heidy Oquendo [facility] [employer] 05/17/2019 08:15:07 Imaging Results None recorded. Procedure Notes None recorded. Medical Equipment None Reported. Allergies No known drug allergies Medications Name Sig Start Date Stop Date Status Note LastModified by Organization Details LastModified Time Prescript ion - Prior Authoriza tion Request active sildenaf il citrate 100 mg tabs Not Available Not Available Not Available fluconazo le 150 mg tablet Take 1 tablet every 72 hours by oral route. 07/02 completed Not Available Not Available Not Available lisinopri l 20 mg tablet TAKE 1 TABLET BY MOUTH EVERY DAY 2021 active Not Available Not Available Not Avai lable sildenafi l 100 mg tablet TAKE 1 TABLET BY MOUTH EVERY DAY active Not Available Not Available No t Available alprazola m 0.25 mg tablet Take 1 tablet 3 times a day by oral route as needed. 2021 active Not Available Not Available Not Avai lable lisinopri l 10 mg tablet Take 1 tablet every day by oral route. 05/17 completed Not Available Not Available Not Available zolpidem 10 mg tablet Take 1 tablet every day by oral route. 09/19 completed Not Available Not Available Not Available methylpre dnisolone 4 mg tablets in a dose pack TK UTD 05/17 completed Not Available Not Available Not Available albuterol sulfate HFA 90 mcg/actua tion aerosol inhaler INL 2 PFS PO Q 6 H PRN 2019 active Not Available Not Available Not Avai lable Klonopin 1 mg tablet Take 1 tablet every day by oral route at bedtime. 11/17 completed Not Available Not Available Not Available fluoxetin e 20 mg capsule Take 1 capsule every day by oral route. 2020 active Not Available Not Available Not Avai lable sertralin e 50 mg tablet TAKE 1 TABLET BY MOUTH EVERY DAY active Not Available Not Available No t Available Atripla 600 mg-200 mg-300 mg tablet TAKE ONE TABLET BY MOUTH ONCE DAILY ON AN EMPTY STOMACH. STORE IN ORIGINAL BOTTLE AT ROOM TEMPERAT URE. 2021 active Not Available Not Available Not Avai lable Trintelli x 10 mg tablet Take 1 tablet every day by oral route. 11/17 completed Not Available Not Available Not Available Paxlovid 300 mg (150 mg x 2)-100 mg tablets in a dose pack Take 1 dose pk every day by oral route as directed . 2021 active Not Available Not Available Not Avai labsara Vitals Date Recorded Body mass index (BMI) Body weight Systolic And Diastolic Provider Name and Address Organization Details Last Updated DateTime 10/11/2021 29.6 kg/m2 21489.14 g 150/78 mm[Hg] Tameka Percent, [address]ND PRESSMAN [address], [place], [address], [place] - [facility], [facility] 10/11/2021 11:05:26 Date Recorded Body height Provider Name an d Address Organization Details Last Updated DateTime 10/11/2021 182.88 cm Enedelia Casas [place] - [facility], [facility] 10/11/2021 10:58:44 Date Recorded Body mass index (BMI) Body weight Systolic And Diastolic Provider Name and Address Organization Details Last Updated DateTime 01/01/2021 28.1 kg/m2 99028.62 g 120/86 mm[Hg] Tameka Percent, [address]ND PRESSMAN [address], [place], [address], [facility], [facility] 01/01/2021 13:07:04 Date Recorded Body height Provider Name an d Address Organization Details Last Updated DateTime 01/01/2021 182.88 cm Enedelia [facility] [employer], [facility] 01/01/2021 13:03:06 Date Recorded Body height Body mass index (BMI) Body weight Systolic And Diastolic Provider Name and Address Organization Details Last Updated DateTime 01/03/2022 182.88 cm 28.5 kg/m2 85701.4 g 130/72 mm[Hg] Tameka Percent, [address]ND PRESSMAN [address], [place], [address], [facility], [facility] 01/03/2022 12:09:46 Date Recorded Body height Body mass index (BMI) Body weight Systolic And Diastolic Provider Name and Address Organization Details Last Updated DateTime 04/09/2021 182.88 cm 28.9 kg/m2 45934.17 g 130/78 mm[Hg] Tameka Percent, [address]ND PRESSMAN [address], [place], [address], [facility], [facility] 04/09/2021 13:15:30 Date Recorded Body height Body mass index (BMI) Body weight Systolic And Diastolic Provider Name and Address Organization Details Last Updated DateTime 07/02/2021 182.88 cm 29.2 kg/m2 23359.36 g 130/78 mm[Hg] Enedelia [facility], [facility] 07/02/2021 11:32:46 Social History Question Answer Notes LastModified by Organizat ion Details LastModified Time Tobacco Smoking Status Former Smoker Enedelia [facility], [facility] 07/02/2021 11:34:47 Do You Have An Advance Directive? No Information not available 05/17/2019 How Much Tobacco Do You Chew? None Information not available 05/17/2019 In The 14 Days Before Symptom Onset, Have You Had Close Contact With A Laboratory-confir med COVID-19 While That Case Was Ill? No Information not available 11/17/2020 In The 14 Days Before Symptom Onset, Have You Had Close Contact With A Person Who Is Under Investigation For COVID-19 While That Person Was Ill? No Information not available 11/17/2020 Have You Been To An Area Known To Be High Risk For COVID-19? No Information not available 11/17/2020 Which Illicit Or Recreational Drugs Have You Used? None Information not available 05/17/2019 When Did You Quit Smoking? 1-5yearssinc elastcigaret te Quit 12/12/2020 Information not available 07/02/2021 How Many Days In The Past Year Have You Had A Heavy Drinking Consumption (4+ Female, 5+ Male)? 0 Information no t available 05/17/2019 Alcohol Use No Information n ot available 05/17/2019 Marital Status Domestic Partner Information not available 05/17/2019 Do You Have A Medical Power Of Mid Wife? No Information not available 11/17/2020 What Was The Date Of Your Most Recent Tobacco Screening? 10/11/2021 Information not available 10/11/2021 At What Age Did You Start Smoking Tobacco? 24 Information not available 05/17/2019 How Much Tobacco Do You Smoke? No Information not available 07/02/2021 Has Tobacco Cessation Counseling Been Provided? No Information not available 05/17/2019 How Many Years Have You Smoked Tobacco? 20 Information not available 05/17/2019 Sex: Unknown Functional Status Question Answer Note LastModified by Organizat ion Details LastModified Time Do you use any illicit or recreational drugs? No Information not available 10/11/2021 Do you or have you ever used any other forms of tobacco or nicotine? No Information not available 07/02/2021 What is your level of alcohol consumption? None Information not available 05/17/2019 Do you or have you ever used smokeless tobacco? 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 Never used electronic cigarettes Information not available 05/17/2019 What is your exercise level? Moderate Information not available 05/17/2019 Mental Status None recorded. Family History Relationship Description Onset Age of this Age Resolved Age Notes LastModified by Organization Details LastModified Time Mother Mother [email or web address] Not available 2018 08:19:27 Father Father bone cancer [email or web address] Not available 05/17/2019 08:37:34 Sister Congestive heart failure 42 42 kpercent Not available 2018 08:38:16 Medical History Condition Response Cancer (location) N Other N Gout N Thyroid Disease N Kidney Stones N Emphysema/COPD N Measles/Mumps N Sexually Transmitted Disease N Depression N Prostate Problems N Vascular Disease N Rash/Skin Condition N Amputation (location) N Parkinson's N Paralysis N Headaches/Migraines N Cardiac Pacemaker/defibrillator N Nerve Damage / Neuropathy N Arthritis N Sleep disorder/Insomnia N Heart disease / Heart Attack N Crohn's Disease N HIV/AIDS N Stroke/TIA N Colon Problems N High Cholesterol N Serious Injuries N Kidney Disease N Memory Loss/Alzheimer's N Gallbladder disease N High blood pressure N Congestive heart failure N Falls N Alcohol Overuse N Blood Thinner Treatment N Hormone Replacement N Nervous Breakdown N Franks's Esophagus N Anemia N Urinary Problems N Colon Polyps N Gastritis N Hospitalizations (other than operations) N Back pain N Diabetes N Rheumatic Fever N Bleeding Disorder N Cardiac Arrhythmias /irregular heart rat e N Osteopenia/Osteoporosis N Anxiety/Stress N Asthma N Vision Problems N Erectile / Sexual Dysfunction N Ostomies (location) N Seizures N Jaundice N Sleep Apnea N Hepatitis N Cirrhosis N GERD/Ulcer N Chicken Pox N Allergies (other than meds) N Immunizations Vaccine Type Date Status Note Provider Nam e and Address Organization Details Recorded Time Hep B, unspecified formulation 3 completed Not Available [facility] 01/02/2022 01:32:01 Influenza, split virus, trivalent, preservative 8 completed Not Available [facility] 01/02/2022 01:32:01 Influenza, split virus, quadrivalent, preservative 9 completed Not Available [facility] 01/02/2022 01:32:01 COVID-19, mRNA, LNP-S, PF, 30 mcg/0.3 mL dose 1 completed Enedelia jain [facility], [facility] 10/03/2020 14:14:33 Influenza, split virus, quadrivalent, preservative 0 completed Not Available [facility] 01/02/2022 01:32:01 COVID-19, mRNA, LNP-S, PF, 30 mcg/0.3 mL dose 1 completed Enedelia jain [facility], [facility] 10/03/2020 14:14:33 Influenza, split virus, quadrivalent, preservative 1 completed Not Available [facility] 01/02/2022 01:32:01 COVID-19, mRNA, LNP-S, PF, 30 mcg/0.3 mL dose 1 completed Not Available [facility] 01/02/2022 01:32:01 Past Encounters Encounter ID Performer Location Encounter Start Date Encounter Closed Date Diagnosis/Indication Diagnosis SNOMED-CT Code Diagnosis ICD10 Code Diagnosis Note [id number] Vida antoine MD [facility] [address] [place] [address] [place] [address] 04/18/2019 15:34:48 04/18/2019 16:30:02 Essential hypertension 37028944 I10 as borderline control will up Lisinopril dosage to 20 mg daily,pt will cont.check ing frequently ,pending visit with new PCP Asymptomat ic human immunodeficiency virus infection 19363136 Z21 cont.medic ation [id number] Tameka Mason, 2ND PRESSMAN [facility] [address] [facility] [address] [place] [address] 05/17/2019 07:59:52 05/17/2019 11:29:54 Hypogonadism 42650699 E29.1 chronic, controlled check labs Fatigue 54904064 R53.83 chronic, controlled check labsincrea se activity as toleratedl ow fat low CHO diet Hyperlipidemia 33961829 E78.5 chronic, controlled chrck labslow fat dietincrea se activity as tolerated Human immunodeficiency virus infection 26768703 B20 chronic, controlled has had viral load zero for yearsconti nue current medsmonito r labs Tachycardia 2504816 R00. 0 chronic, controlled check EKG [id number] Tameka Mason, 2ND PRESSMAN [facility] [address] [facility] [address] [place] [address] 06/29/2019 14:54:11 06/29/2019 16:23:31 Palpitations 41367430 R00.2 acute, uncontroll edcheck holterchec k labs Human immunodeficiency virus infection 67168683 B20 chronic, controlled has had viral load zero for yearsconti nue current medsmonito r labs Chest pain 30664514 R07. 9 acute, uncontroll edcheck additional labsd/c smoking, pt noncommitt al at current [id number] Tamekamegan Mason, 2ND PR[employer]MAN [facility] [address] [place] [address] 08/03/2019 10:04:50 08/03/2019 11:25:17 Anxiety 44263372 F41.9 chronic, worsenings tart klonopin 1-1/2 tab qhsstart zoloft- discussed use and s/astress relief activities Human immunodeficiency virus infection 29570787 B20 chronic, controlled has had viral load zero for yearsconti nue current medsmonito r labs Essential hypertension 35990653 I10 chronic, controlled continue current medincreas e activity as toletrated d/c smokinglow Na diet [id number] Tameka Mason, 2ND PRESSMAN [facility] [address] [place] [address] 11/08/2019 08:14:54 11/08/2019 10:11:18 Insomnia 440767872 G47.00 chronic, uncontroll edstart ambien 10 mg- discussed use and s/ad/c klonopin q Hyperglycemia 14636208 R 73.9 chronic, uncontroll edcheck A1C, check UAlow CHO dietincrea se activity as tolerated Anxiety 35872694 F41.9 chronic, worsenings tart klonopin 1-1/2 tab qhsstart zoloft- discussed use and s/astress relief activities Elevated blood-pressure reading without diagnosis of hypertension 850163483 R03.0 chronic, controlled continue low sodium dietcontin ue to increase activity as tolerated [id number] Tameka Mason, 2ND PR[employer]MAN [facility] [address] [place] [address] 08/04/2020 12:05:37 08/04/2020 13:51:32 Anxiety 64875780 F41.9 chronic, worsenings tart klonopin 1-1/2 tab qhsstart zoloft- discussed use and s/astress relief activities Renewal of prescription 623309374 Z76.0 Human immunodeficiency virus infection 08966939 B20 chronic, controlled has had viral load zero for yearsconti nue current meds- atripla 600-200-30 0 dailymonit or labs Hyperglycemia 62653236 R 73.9 chronic, uncontroll edcheck A1C, check UAlow CHO dietincrea se activity as tolerated Hyperlipidemia 71397019 E78.5 chronic, controlled chrck labslow fat dietincrea se activity as tolerated [id number] Tameka Mason, 2ND PRESSMAN [facility] [address] [place] [address] 09/19/2020 12:31:41 09/19/2020 13:34:58 Anxiety 54529002 F41.9 chronic, worsenings tart klonopin 1-1/2 tab qhstrelleg y 10 mg daily- samples give, discussed use and s/aRTC 2 weeks for lab review and med f/ustress relief activities [id number] Tameka Mason, 2ND PR[employer]MAN [facility] [address] [facility] [address] [place] [address] 10/03/2020 14:11:22 10/03/2020 15:26:11 Human immunodeficiency virus infection 58693927 B20 chronic, controlled has had viral load zero for yearsconti nue current meds- atripla 600-200-30 0 dailymonit or labs Serum artemio min B12 below reference range 852407976 R79.89 chronic, controlled supplement b12 2500 mcg sublinguil Anxiety 11575427 F41.9 chronic, worsening start klonopin 1 mg qhs prn trellegy 10 mg daily- samples give, discussed use and s/a stress relief activities Genesight done today RTC 6 weeks start counseling with [place] Miranda as discussedh as had side effects/un able to tolerate meds in the past, would benefit from genetic testing to discover medication s with less side effects and would be more tolerable for pt [id number] Tameka Mason APRN [facility] [address] [facility] [place] [address] 11/17/2020 13:08:47 11/17/2020 14:50:45 Anxiety 46596338 F41.9 chronic, improving continue xanax trellegy 10 mg daily- 1/2 tab x week, 1/2 tab every other day then d/c start fluoxetine 20 mg every other day while weaning trellegy, then qd stress relief activities Genesight done today RTC 6 weeks start counseling with Brooklyn Miranda as discussed Human immunodeficiency virus infection 53667013 B20 chronic, controlled has had viral load zero for yearsconti nue current meds- atripla 600-200-30 0 dailymonit or labs Hypertensive disorder 38 199609 I10 chronic, controlled continue lisinopril 20 mg daily low Na diet increase activity as tolerated stress relief activities [id number] Tameka Mason APRN [facility] [address] [facility] [address] [facility] [place] [address] 01/01/2021 12:54:34 01/01/2021 13:19:16 Hypertensive disorder 89799803 I10 chronic, controlled continue lisinopril 20 mg daily low Na diet increase activity as tolerated stress relief activities Human immunodeficiency virus infection 05555744 B20 chronic, controlled has had viral load zero for yearsconti nue current meds- atripla 600-200-30 0 dailymonit or labs Hyperglycemia 37503519 R 73.9 chronic, uncontroll edcheck A1C, check UAlow CHO dietincrea se activity as tolerated Anxiety 48259306 F41.9 chronic, improving continue xanaxconti nue fluoxetine 20 mg dailystres s relief activities start counseling with [place] Miranda as discussed Screening for malignant neoplasm of prostate 984506924 Z12.5 [id number] Tameka Mason APRN [facility] [address] [facility] [place] [address] 04/09/2021 13:03:50 04/09/2021 13:42:50 Anxiety 02004383 F41.9 chronic, improving continue xanaxconti nue fluoxetine 20 mg dailystres s relief activities Hypertensive disorder 38 740662 I10 chronic, controlled continue lisinopril 20 mg daily low Na diet increase activity as tolerated stress relief activities Hyperglycemia 92073814 R 73.9 chronic, uncontroll edcheck A1C, check UAlow CHO dietincrea se activity as tolerated Human immunodeficiency virus infection 44227049 B20 chronic, controlled has had viral load zero for yearsconti nue current meds- atripla 600-200-30 0 dailymonit or labspt to get covid booster vaccine and flu vaccine [id number] Tameka Mason [address] [employer] [facility] [address] [place] [address] 07/02/2021 10:56:20 07/02/2021 12:46:41 Adult health examination 275071357 Z00.00 Preventive visit done today. Anticipato ry guidance given as noted below. Hyperglycemia 27394187 R 73.9 chronic, uncontroll edcheck A1C, check UAlow CHO dietincrea se activity as tolerated Hypertensive disorder 38 198920 I10 chronic, controlled continue lisinopril 20 mg daily low Na diet increase activity as tolerated stress relief activities Human immunodeficiency virus infection 80525254 B20 chronic, controlled has had viral load zero for yearsconti nue current meds- atripla 600-200-30 0 dailymonit or labs- will have ID review labs as CD 8 ct slightly elevatedpt to get covid booster vaccine and flu vaccine Anxiety 03514118 F41.9 chronic, improving continue xanaxconti nue fluoxetine 20 mg dailystres s relief activities Hyperlipidemia 96165054 E78.5 chronic, controlled chrck labslow fat dietincrea se activity as tolerated Fatigue 75664904 R53.83 chronic, controlled check labsincrea se activity as toleratedl ow fat low CHO diet Increased body mass index 24451819 Z68.29 elevated BMI. Discussed diet and better therapeuti c lifestyle changes. Diet education 01430874 Z71.3 as above [id number] Tameka Mason APRN [facility] [address] 112 [facility] [place] [address] 10/11/2021 10:40:32 10/11/2021 13:03:11 Human immunodeficiency virus infection 13349305 B20 chronic, controlled has had viral load zero for yearsconti nue current meds- atripla 600-200-30 0 dailymonit or labs- will have ID review labs as CD 8 ct slightly elevatedpt to get covid booster vaccine and flu vaccine Hypertensive disorder 38 037596 I10 chronic, controlled continue lisinopril 20 mg daily low Na diet increase activity as tolerated stress relief activities Anxiety 31511797 F41.9 chronic, controlled continue xanaxconti nue fluoxetine 20 mg dailystres s relief activities Hyperglycemia 12297198 R 73.9 chronic, controlled check A1C, check UAlow CHO dietincrea se activity as tolerated Hyperlipidemia 73626758 E78.5 chronic, controlled chrck labslow fat dietincrea se activity as tolerated [id number] Tameka Mason APRN [facility] [address] [place] [address] 01/03/2022 11:27:44 01/03/2022 13:39:55 Hyperglycemia 16892221 R73.9 chronic, controlled check A1C, check UAlow CHO dietincrea se activity as tolerated Human immunodeficiency virus infection 42223974 B20 chronic, controlled has had viral load zero for yearsconti nue current meds- atripla 600-200-30 0 dailymonit or labs- will have ID review labs as CD 8 ct slightly elevatedpt to get covid booster vaccine and flu vaccine Hypertensive disorder 38 154221 I10 chronic, controlled continue lisinopril 20 mg daily low Na diet increase activity as tolerated stress relief activities Anxiety 09245534 F41.9 chronic, controlled continue xanaxconti nue fluoxetine 20 mg dailystres s relief activities Hyperlipidemia 43096195 E78.5 chronic, controlled chrck labslow fat dietincrea se activity as tolerated Hypogonadism 00244085 E2 9.1 chronic, controlled check labs Vitamin B1 2 deficiency (non anemic) 26528526 E53.8 chronic, controlled check Vit B12 level Health Concerns Section Related Observation LastModified by Organization Detai ls LastModified Time None Recorded Concern Status LastModified by Organization Details LastModified Time None Recorded Advance Directives Directive N: Payers Insurance Date Sequence Insurance Name Policy Number Policy Tobias Covered Member ID Tobias Member ID Guarantor Name 01/04/2022 2 [place] (PPO) Gabe Hughes [id number] Gabe Hughes 01/04/2022 2 [employer] Gabe Hughes [id number] Gabe Hughes 01/07/2022 2 [facility] (PPO) Gabe Hughes [id number] Gabe Hughes 04/17/2021 2 [facility] (MEDICAID HMO) Gabe Hughes [id number] Gabe Hughes 01/25/2021 2 [place] [id number] Gabe Hughes [id number] Gabe Hughes 07/08/2019 1 [place] [id number] Gabe Hughes [id number] Gabe Hughes 08/03/2019 1 [facility] (PPO) [id number] Gabe Hughes [id number] Gabe Hughes 03/24/2022 1 [facility] (PPO) [id number] Gabe Hughes [id number] Gabe Hughes Notes Date Note Type Note Provider Name and Address Organization Details Recorded Time 01/02/20 21 text/htm l AnxietyReported bypatient.Reason for visit:continued care of chronic complaint Anxiety Type:episodic anxiety Severity:better Duration:intermittent Onset/Timing:recurrent episode Alleviating factors:medication; stress management Aggravating factors:stress Associated Symptoms:denies suicidal ideationsChronic Complaints follow upReported bypatient.Reason for visit:continued care of chronic complaint(s) Diagnosis:elevated blood sugar (IFG) (chronic, controlled); HIV- chronic, controlled Current status:All well controlled/stable Current control and compliance:All usually well controlled/stable ; usually compliant with regimen; exercising regularly; active lifestyle; eating healthy meals Current symptoms/concerns:none statedHypertension/Hypertensiv e diseasesReported bypatient.Reason for visit:continued care of chronic complaint Hypertension Diagnosis:Benign Essential hypertension Complications due to HTN:no complicatons Presenting symptoms/method of dx:asymptomatic / elevated BP found on routine blood pressure check Current therapy:medication list reviewed; using diet and exercise; using other therapeutic lifestyle changes; no side effects from medications Current control and compliance:usually well controlled; usually compliant with regimen; checks bp regularly with home monitor; exercising regularly; eating healthy meals Current Symptoms/Concerns:none stated This visit was conducted via our telehealth video visit service. Provider location: in office Patient location: at home address on file Visit Participants in addition to provider and patient: none Patient has given verbal consent to telehealth visit. Agustin Watt MD [address], [place], [address], [facility] [employer] [facility] Physician [facility], [facility] 01/07/2021 14:40:09 04/09/20 21 text/htm l AnxietyReported bypatient.Reason for visit:continued care of chronic complaint Anxiety Type:episodic anxiety Severity:better Duration:intermittent Onset/Timing:recurrent episode Alleviating factors:medication; stress management Aggravating factors:stress Associated Symptoms:denies suicidal ideationsChronic Complaints follow upReported bypatient.Reason for visit:continued care of chronic complaint(s) Diagnosis:elevated blood sugar (IFG) (chronic, controlled); HIV- chronic, controlled Current status:All well controlled/stable Current control and compliance:All usually well controlled/stable ; usually compliant with regimen; exercising regularly; active lifestyle; eating healthy meals Current symptoms/concerns:none statedHypertension/Hypertensiv e diseasesReported bypatient.Reason for visit:continued care of chronic complaint Hypertension Diagnosis:Benign Essential hypertension Complications due to HTN:no complicatons Presenting symptoms/method of dx:asymptomatic / elevated BP found on routine blood pressure check Current therapy:medication list reviewed; using diet and exercise; using other therapeutic lifestyle changes; no side effects from medications Current control and compliance:usually well controlled; usually compliant with regimen; checks bp regularly with home monitor; exercising regularly; eating healthy meals Current Symptoms/Concerns:none stated This visit was conducted via our telehealth video visit service. Provider location: in office Patient location: at home address on file Visit Participants in addition to provider and patient: none Patient has given verbal consent to telehealth visit. This visit was conducted via our telehealth video visit service. Provider location: in office Patient location: at home address on file Visit Participants in addition to provider and patient: none Patient has given verbal consent to telehealth visit. Agustin Watt MD [address], [place], [address], [facility], [facility] 04/15/2021 06:35:35 07/02/20 21 text/htm l AnxietyReported bypatient.Reason for visit:continued care of chronic complaint Anxiety Type:episodic anxiety Severity:better Duration:intermittent Onset/Timing:recurrent episode Alleviating factors:medication; stress management Aggravating factors:stress Associated Symptoms:denies suicidal ideationsChronic Complaints follow upReported bypatient.Reason for visit:continued care of chronic complaint(s) Diagnosis:elevated blood sugar (IFG) (chronic, controlled); HIV- chronic, controlled fatigue- chronic, controlled Current status:All well controlled/stable Current control and compliance:All usually well controlled/stable ; usually compliant with regimen; exercising regularly; active lifestyle; eating healthy meals Current symptoms/concerns:none statedDyslipidemiaReported bypatient.Reason for visit:continued care of chronic complaint Diagnosis:hypercholesterolemia Complications due to diagnosis:no complicatons Presenting symptoms/method of diagnosis:asymptomatic / coincidental finding on test Interventions:no interventions Current therapy:medication list reviewed; using diet and exercise; using other therapeutic lifestyle changes; no side effects from medication Current control and compliance:usually poorly controlled, symptomatic;not eating healthy meals Current tests/results:Lipid profile shows poor control as out patient Current Symptoms/Concerns:none statedHypertension/Hypertensiv e diseasesReported bypatient.Reason for visit:continued care of chronic complaint Hypertension Diagnosis:Benign Essential hypertension Complications due to HTN:no complicatons Presenting symptoms/method of dx:asymptomatic / elevated BP found on routine blood pressure check Current therapy:medication list reviewed; using diet and exercise; using other therapeutic lifestyle changes; no side effects from medications Current control and compliance:usually well controlled; usually compliant with regimen; checks bp regularly with home monitor; exercising regularly; eating healthy meals Current Symptoms/Concerns:none stated This visit was conducted via our telehealth video visit service. Provider location: in office Patient location: at home address on file Visit Participants in addition to provider and patient: none Patient has given verbal consent to telehealth visit. This visit was conducted via our telehealth video visit service. Provider location: in office Patient location: at home address on file Visit Participants in addition to provider and patient: none Patient has given verbal consent to telehealth visit. This visit was conducted via our telehealth video visit service. Provider location: in office Patient location: at home address on file Visit Participants in addition to provider and patient: none Patient has given verbal consent to telehealth visit. Agustin Watt MD [address] [address], [place], [address], [facility], [facility] 07/09/2021 08:40:06 10/12/19 22 text/htm l AnxietyReported bypatient.Reason for visit:continued care of chronic complaint Anxiety Type:episodic anxiety Severity:better Duration:intermittent Onset/Timing:recurrent episode Alleviating factors:medication; stress management Aggravating factors:stress Associated Symptoms:denies suicidal ideationsChronic Complaints follow upReported bypatient.Reason for visit:continued care of chronic complaint(s) Diagnosis:elevated blood sugar (IFG) (chronic, controlled); HIV- chronic, controlled Current status:All well controlled/stable Current control and compliance:All usually well controlled/stable ; usually compliant with regimen; exercising regularly; active lifestyle; eating healthy meals Current symptoms/concerns:none statedDyslipidemiaReported bypatient.Reason for visit:continued care of chronic complaint Diagnosis:hypercholesterolemia Complications due to diagnosis:no complicatons Presenting symptoms/method of diagnosis:asymptomatic / coincidental finding on test Interventions:no interventions Current therapy:medication list reviewed; using diet and exercise; using other therapeutic lifestyle changes; no side effects from medication Current control and compliance:usually poorly controlled, symptomatic;not eating healthy meals Current tests/results:Lipid profile shows poor control as out patient Current Symptoms/Concerns:none statedHypertension/Hypertensiv e diseasesReported bypatient.Reason for visit:continued care of chronic complaint Hypertension Diagnosis:Benign Essential hypertension Complications due to HTN:no complicatons Presenting symptoms/method of dx:asymptomatic / elevated BP found on routine blood pressure check Current therapy:medication list reviewed; using diet and exercise; using other therapeutic lifestyle changes; no side effects from medications Current control and compliance:usually well controlled; usually compliant with regimen; checks bp regularly with home monitor; exercising regularly; eating healthy meals Current Symptoms/Concerns:none stated This visit was conducted via our telehealth video visit service. Provider location: in office Patient location: at home address on file Visit Participants in addition to provider and patient: none Patient has given verbal consent to telehealth visit. This visit was conducted via our telehealth video visit service. Provider location: in office Patient location: at home address on file Visit Participants in addition to provider and patient: none Patient has given verbal consent to telehealth visit. This visit was conducted via our telehealth video visit service. Provider location: in office Patient location: at home address on file Visit Participants in addition to provider and patient: none Patient has given verbal consent to telehealth visit. This visit was conducted via our telehealth video visit service. Provider location: in office Patient location: at home address on file Visit Participants in addition to provider and patient: none Patient has given verbal consent to telehealth visit. Tameka Mason, [address] [employer] [address] [facility] [address], [place], [address], [facility], [facility] 10/12/2021 10:30:34 01/04/20 22 text/htm l AnxietyReported bypatient.Reason for visit:continued care of chronic complaint Anxiety Type:generalized anxiety disorder Quality:nervous Severity:better Duration:intermittent Onset/Timing:recurrent episode Context:major life stressors; new job Alleviating factors:medication; stress management Aggravating factors:stress Associated Symptoms:denies suicidal ideationsChronic Complaints follow upReported bypatient.Reason for visit:continued care of chronic complaint(s) Diagnosis:elevated blood sugar (IFG) (chronic, controlled); HIV- chronic, controlled hypogonadism- chronic, controlled vit b12 def- chronic, controlled Current status:All well controlled/stable Current control and compliance:All usually well controlled/stable ; usually compliant with regimen; eating healthy meals Current symptoms/concerns:none statedDyslipidemiaReported bypatient.Reason for visit:continued care of chronic complaint Diagnosis:hypercholesterolemia Complications due to diagnosis:no complicatons Presenting symptoms/method of diagnosis:asymptomatic / coincidental finding on test Interventions:no interventions Current therapy:medication list reviewed; using diet and exercise; no side effects from medication Current control and compliance:usually well controlled, asymptomatic; exercising regularly; eating healthy meals Current Symptoms/Concerns:none statedHypertension/Hypertensiv e diseasesReported bypatient.Reason for visit:continued care of chronic complaint Hypertension Diagnosis:Benign Essential hypertension Complications due to HTN:no complicatons Presenting symptoms/method of dx:asymptomatic / elevated BP found on routine blood pressure check Current therapy:medication list reviewed; using diet and exercise; no side effects from medications Current control and compliance:usually well controlled; eating healthy meals Current Symptoms/Concerns:none stated This visit was conducted via our telehealth video visit service. Provider location: in office Patient location: at home address on file Visit Participants in addition to provider and patient: none Patient has given verbal consent to telehealth visit. Tameka Mason, [address]ND [employer] [address], [place], [address], [facility], [facility] 01/03/2022 12:42:22
--- OUTSIDE RECORDS SUMMARY | 2025-01-26 13:21 | XMS_ITS ---
Author Organization [facility] Address [address] [place] [address] Care Team Providers Care [employer] Curriculum Developer Name Role Phone Migration, Provider Unavailable Unavailable Allergies No Known Allergies REASON FOR VISIT EMR-Rufino Medications Medication SIG (Take, Route, Frequency, Duration) Notes Start Date End Date Status Ventolin HFA 108 (90 Base) MCG/ACT Aerosol Solution INHALE 2 PUFF BY INHALATION ROUTE EVERY 6 HOURS NEEDED Inhalation taking as directed 11/05/2018 Active Stacy Allergy 180 MG Tablet take 1 tablet by oral route every day Oral 10/13/2018 Active Flonase Allergy Relief 50 MCG/ACT Suspension spray 1 - 2 spray by intranasal route every day in each nostril as needed Nasal 10/13/2018 Active Lisinopril 10 MG Tablet take 1 tablet by oral route every day Oral taking as directed 03/17/2018 Active Phentermine HCl 37.5 MG Tablet take 1 tablet by oral route every day before breakfast Oral 10/13/2018 Active clonazePAM 0.5 MG Tablet take 1 tablet by oral route 2 times every day for Anxiety Oral taking as directed 10/13/2018 Active Atripla 600-200-300 MG Tablet TAKE 1 TABLET BY ORAL ROUTE EVERY DAY ON AN EMPTY STOMACH on an empty stomach Oral taking as directed 10/13/2018 Active Encounters Encounter Location Date Provider Diagnosis [facility] [place] [address] [place] [address] 05/16/2024 Provider Migration Plan Of Treatment No Information Progress Notes * Timur RODRIGUEZOB:1975 ( 49 yo M)Acc No.[id number]:05/16/2024 Patient: Michael DRISCOLLy :1975 A ge:49 Y S ex:Male Address:[address] [place] [address], [id number] Subjective: * Chief Complaints: * E MR-Rufino * Medical History: Disease : HIV positive, , Disease : HIV, , Med_system:cardiovascular, Disease : Hypertension, , Med_system:neurologic, Disease : Headache, migraine, , Med_system:neurologic, Disease : Seizure disorder, * Surgical History: Med_system:HEENT, Sx_Procedure : Tonsillectomy * Family History: F ather: malignant neoplasm of bone. M other: malignant neoplasm of lung. * Medications: T akingAtripla 600-200-300 MG Tablet TAKE 1 TABLET BY ORAL ROUTE EVERY DAY ON AN EMPTY STOMACH on an empty stomach Oral , Notes to Pharmacist: taking as directedAtripla 600-200-300 MG Tablet take 1 tablet by oral route every day on an empty stomach Oral , Notes to Pharmacist: taking as directedclonazePAM 0.5 MG Tablet take 1 tablet by oral route 2 times every day for Anxiety Oral , Notes to Pharmacist: taking as directedLisinopril 10 MG Tablet take 1 tablet by oral route every day Oral , Notes to Pharmacist: taking as directedPhentermine HCl 37.5 MG Tablet take 1 tablet by oral route every day before breakfast Oral Ventolin HFA 108 (90 Base) MCG/ACT Aerosol Solution INHALE 2 PUFF BY INHALATION ROUTE EVERY 6 HOURS NEEDED Inhalation , Notes to Pharmacist: taking as directedAllegra Allergy 180 MG Tablet take 1 tablet by oral route every day Oral Flonase Allergy Relief 50 MCG/ACT Suspension spray 1 - 2 spray by intranasal route every day in each nostril as needed Nasal Taking Atripla 600-200-300 MG Tablet TAKE 1 TABLET BY ORAL ROUTE EVERY DAY ON AN EMPTY STOMACH on an empty stomach Oral , Notes to Pharmacist: taking as directedTaking Atripla 600-200-300 MG Tablet take 1 tablet by oral route every day on an empty stomach Oral , Notes to Pharmacist: taking as directedTaking clonazePAM 0.5 MG Tablet take 1 tablet by oral route 2 times every day for Anxiety Oral , Notes to Pharmacist: taking as directedTaking Lisinopril 10 MG Tablet take 1 tablet by oral route every day Oral , Notes to Pharmacist: taking as directedTaking Phentermine HCl 37.5 MG Tablet take 1 tablet by oral route every day before breakfast Oral Taking Ventolin HFA 108 (90 Base) MCG/ACT Aerosol Solution INHALE 2 PUFF BY INHALATION ROUTE EVERY 6 HOURS NEEDED Inhalation , Notes to Pharmacist: taking as directedTaking Stacy Allergy 180 MG Tablet take 1 tablet by oral route every day Oral Taking Flonase Allergy Relief 50 MCG/ACT Suspension spray 1 - 2 spray by intranasal route every day in each nostril as needed Nasal * Allergies: N .K.D.A. * * Date:
--- OUTSIDE RECORDS SUMMARY | 2025-01-26 13:21 | XMS_ITS | Patient Health Record ---
Author Organization [facility] Address [address] [place] [address] Care Team Providers Care [employer] Team Member Name Role Phone Migration, Provider Unavailable Unavailable Allergies No Known Allergies Reason For Referral No Information Medications Medication SIG (Take, Route, Frequency, Duration) [...] each nostril as needed Nasal 10/13/2018 Active clonazePAM 0.5 MG Tablet take 1 tablet by oral route 2 times every day for Anxiety Oral taking as directed 10/13/2018 Active Lisinopril 10 MG Tablet take 1 tablet by oral route every day Oral taking as directed 03/17/2018 Active Phentermine HCl 37.5 MG Tablet take 1 tablet by oral route every day before breakfast Oral 10/13/2018 Active Atripla 600-200-300 MG Tablet TAKE 1 TABLET BY ORAL ROUTE EVERY DAY ON AN EMPTY STOMACH on an empty stomach Oral taking as directed 10/13/2018 Active Problems Problem Type SNOMED Code ICD Code Onset Dates Problem Status W/U Status Risk Notes Problem Human immunodeficiency virus infection (84445355) Human immunodeficiency virus [HIV] disease (B20) Active confirmed Problem Anxiety disorder (928902439) Anxiety disorder, unspecified (F41.9) Active confirmed Problem Migraine without aura, not refractory (disorder) (842088922) Migraine, unspecified, not intractable, without status migrainosus (G43.909) Active confirmed Problem Essential (primary) hypertension (I10) Active confirmed Problem Chronic maxillary sinusitis (19369133) Chronic maxillary sinusitis (J32.0) Active confirmed Problem Asthma (005034089) Other asthma (J45.998) Active confirmed Problem Abnormal weight gain (082144811) Abnormal weight gain (R63.5) Active confirmed Encounters Encounter Location Date Provider Diagnosis [facility] [address] [place] [id number] 05/15/2024 Provider Migration [facility] [address] [place] [address] 05/16/2024 Provider Migration Plan Of Treatment No Information Insurance Providers Payer Name Payer Address Payer Phone Subscriber Number Group Number Insured Name Patient Relationship to Insured Coverage Start Date Coverage End Date [facility] [address] [place] [address] [id number] Gabe Hughes Self - patient is the insured Medical (General) History Surgical History Surgery Date(Month/Year) Med_system:Dena HOSKINS_Procedure : Tonsill ectomy
--- OUTSIDE RECORDS SUMMARY | 2025-01-26 13:21 | XMS_ITS ---
Author Organization [facility] Address [address] [place] [address] Care Team Providers Care Medical Assistant Float Name Role Phone Migration, Provider Unavailable Unavailable REASON FOR VISIT EMR-[facility] Encounters Encounter Location Date Provider Diagnosis [facility] [address] [place] [address] 05/15/2024 Provider Migration Plan Of Treatment Medication Medication Name Sig Start Date Stop Date Notes tiZANidine HCl 2 MG Tablet take 1 tablet by oral route every 12 hours as needed not to exceed 3 doses in 24 hours Oral 05/26/2017 03/17/2018 Amoxicillin-Pot Clavulanate 875-125 MG Tablet take 1 tablet by oral route every 12 hours Oral 08/08/2016 05/26/2017 Ventolin HFA 108 (90 Base) MCG/ACT Aerosol Solution inhale 2 puff by inhalation route every 6 hours as needed Inhalation 10/13/2018 11/05/2018 taking as directed Zithromax Z-Neville 250 MG Tablet take 2 tablet by oral route every day for 1 day then 1 tablet (250 mg) by oral route once daily for 4 days Oral 03/29/2016 2016 Contrave 8-90 MG Tablet Extended Release 12 Hour take 2 tablet by oral route 2 times every day in the morning and evening Oral 04/17/2017 03/17/2018 Minocycline HCl 100 MG Tablet take 1 tablet by oral route every 12 hours Oral 07/16/2017 09/30/2017 Naratriptan HCl 2.5 MG Tablet take 1 tablet by oral route once may repeat after 4 hours Oral 09/05/2015 03/17/2018 Medrol 4 MG Tablet Therapy Pack take by Oral route Oral 05/26/2017 09/30/2017 Minocycline HCl 100 MG Capsule take 1 capsule by oral route every 12 hours Oral 01/24/2017 05/26/2017 clonazePAM 0.5 MG Tablet take 1 tablet by oral route 2 times every day Oral 03/17/2018 10/13/2018 taking as directed Atripla 600-200-300 MG Tablet TAKE 1 TABLET BY ORAL ROUTE EVERY DAY ON AN EMPTY STOMACH on an empty stomach Oral 10/13/2018 04/14/2019 taking as directed Clindamycin HCl 150 MG Capsule take 1 capsule by oral route every 6 hours FOR 10 DAYS Oral 07/17/2017 09/30/2017 Progress Notes * Timur RODRIGUEZOB:1975 ( 49 yo M)Acc No.[id number]:05/15/2024 Patient: Gabe DRISCOLL :1975 A ge:49 Y S ex:Male Address:[address] [place] [id number] * Refills Stop Amoxicillin-Pot Clavulanate Tablet, 875-125 MG, Oral, 14, take 1 tablet by oral route every 12 hours Stop Atripla Tablet, 600-200-300 MG, Oral, 90, take 1 tablet by oral route every day on an empty stomach Stop Atripla Tablet, 600-200-300 MG, Oral, 90, TAKE 1 TABLET BY ORAL ROUTE EVERY DAY ON AN EMPTY STOMACH Stop Atripla Tablet, 600-200-300 MG, Oral, 90, TAKE 1 TABLET BY ORAL ROUTE EVERY DAY ON AN EMPTY STOMACH Stop Atripla Tablet, 600-200-300 MG, Oral, 90, TAKE 1 TABLET BY ORAL ROUTE EVERY DAY ON AN EMPTY STOMACH Stop Atripla Tablet, 600-200-300 MG, Oral, 90, TAKE 1 TABLET BY ORAL ROUTE EVERY DAY ON AN EMPTY STOMACH on an empty stomach Stop Clindamycin HCl Capsule, 150 MG, Oral, 40, take 1 capsule by oral route every 6 hours FOR 10 DAYS Stop clonazePAM Tablet, 0.5 MG, Oral, 60, take 1 tablet by oral route 2 times every day Stop clonazePAM Tablet, 0.5 MG, Oral, 60, take 1 tablet by oral route 2 times every day Stop clonazePAM Tablet, 0.5 MG, Oral, 60, take 1 tablet by oral route 2 times every day Stop Medrol Tablet Therapy Pack, 4 MG, Oral, 6, take by Oral route Stop Medrol Tablet Therapy Pack, 4 MG, Oral, 1, take by Oral route Stop Medrol Tablet Therapy Pack, 4 MG, Oral, 1, take by Oral route Stop Medrol Tablet Therapy Pack, 4 MG, Oral, 6, take by Oral route Stop Minocycline HCl Capsule, 100 MG, Oral, 14, take 1 capsule by oral route every 12 hours Stop Minocycline HCl Tablet, 100 MG, Oral, 14, take 1 tablet by oral route every 12 hours Stop Naratriptan HCl Tablet, 2.5 MG, Oral, 0, take 1 tablet by oral route once may repeat after 4 hours Stop tiZANidine HCl Tablet, 2 MG, Oral, 14, take 1 tablet by oral route every 12 hours as needed not to exceed 3 doses in 24 hours Stop Ventolin HFA Aerosol Solution, 108 (90 Base) MCG/ACT, Inhalation, 0, inhale 2 puff by inhalation route every 6 hours as needed Stop Ventolin HFA Aerosol Solution, 108 (90 Base) MCG/ACT, Inhalation, 30, inhale 2 puff by inhalation route every 6 hours as needed Stop Zithromax Z-Neville Tablet, 250 MG, Oral, 6, take 2 tablet by oral route every day for 1 day then 1 tablet (250 mg) by oral route once daily for 4 days Stop Contrave Tablet Extended Release 12 Hour, 8-90 MG, Oral, 120, take 2 tablet by oral route 2 times every day in the morning and evening Subjective: * Chief Complaints: * E MR-Rufino * * Date:
[2025-01-26 13:30] VITALS: BP 153/95; PULSE 110; RESP 16; TEMP 36.7; O2SAT 99
[2025-01-26 14:26] LABS: Hematocrit 40.6 % (42.0-52.0); Hemoglobin 13.7 g/dL (14.0-18.0); Immature Granulocyte Percent A 0.2 % (0-0.5); Lymphocytes Absolute Auto 2.84 K/mm3 (0.9-3.2); Mean Corpuscular HGB Conc 33.7 g/dl (32-36); Mean Corpuscular Hemoglobin 31.8 pg (26-34); Mean Corpuscular Volume 94.2 fl (80-100); Nucleated Red Blood Cells Absolute Auto 0.000 K/mm3 (0.0-0.012); Nucleated Red Blood Cells Perc 0.0 % (0.0-0.2); Platelet Count Result 182 k/mm3 (150-375); Red Blood Count 4.31 M/mm3 (4.6-6.20); White Blood Count 8.7 K/mm3 (4.5-10.0)
[2025-01-26 14:40] LABS: Anion Gap 10 mmol/L (4-12); Blood Urea Nitrogen 8 mg/dL (9-20); Calcium 9.1 mg/dL (8.4-10.2); Carbon Dioxide 26 mmol/L (22-30); Chloride 104 mmol/L (98-107); Estimated CRCL calculation 84 ml/min; Estimated Glomerular Filt Rate > 60; Glucose 95 mg/dL (65-110); Potassium 3.9 mmol/L (3.4-5.0); Sodium 140 mmol/L (137-145)
--- NOTE | 2025-01-26 16:48 | ED_ITS ---
HPI - Skin/Abscess/Foreign Bdy General Chief complaint: Skin/Abscess/Foreign Body Stated complaint: POSS RECTAL ABSCESS Time Seen by Provider: 01/26/25 14:09 History of Present Illness HPI narrative: Patient sent here from his PCP, for last few weeks he has had a painful area/swelling around his rectum which he attributed to a lot of recent diarrhea and raw skin. His PCP tried opening an area today that he thought may have been an abscess, no purulent drainage. Sent here for CT. Related Data Home Medications ?Medication ?Instructions ?Recorded ?Confirmed ?Last Taken ?Type alprazolam 0.25 mg tablet (Xanax) 0.25 mg PO QHS PRN Anxiety 05/29/23 09/23/23 Unknown History dolutegravir 50 mg-lamivudine 300 1 tablet PO HS 07/23/23 01/04/25 Unknown History mg tablet (Dovato) docusate sodium 100 mg tablet 100 mg PO TID 08/12/23 09/23/23 Unknown History tirzepatide 10 mg/0.5 mL 10 mg subcut WEEKLY 01/03/25 01/04/25 Unknown History subcutaneous pen injector (Mounjaro) Allergies Allergy/AdvReac Type Severity Reaction Status Date / Time No Known Allergies Allergy Verified 01/04/25 07:02 Review of Systems 2 Review of Systems: All systems reviewed & are unremarkable except as noted in HPI and below PMFSH Past Medical History Medical History HIV (human immunodeficiency virus infection) Seizure Kidney stones Anxiety Surgical History Surgical History History of colonoscopy H/O umbilical hernia repair Robotic laparoscopic repair 2 cm umbilical hernia with mesh 07/31/23 SHAHID History of placement of ear tubes History of tonsillectomy and adenoidectomy Family History Family History Other Diabetes mellitus Heart disease Social History Social History Smoking status: Never smoker Alcohol intake: current Alcohol use details: SPECIAL OCCASIONS ONLY Substance use: never Substance use type: does not use Living arrangements: with family Occupation/Education: occupation 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 EYES: EOMI, conjunctiva normal ENT: Hearing grossly intact LUNGS: Nonlabored breathing. HEART: [Regular rate and rhythm] ABD: [Soft], [nontender to palpation] RECTAL: Rectum without any palpable abscess or fissure. 1cm above anus is 1cm lesion that has linear incision with some packing; no purulent drainage EXT: Normal range of motion SKIN: See above NEURO: [Alert and oriented x 3. No gross focal sensory or strength deficits.] PSYCH: Normal affect Course Vital Signs Vital signs: Vital Signs Temperature 98.1 F 01/26/25 13:30 Pulse Rate 110 H 01/26/25 13:30 Respiratory Rate 16 01/26/25 13:30 Blood Pressure 153/95 H 01/26/25 13:30 Pulse Oximetry 99 01/26/25 13:30 Oxygen Delivery Room Air 01/26/25 13:30 Temperature 98.1 F 01/26/25 13:30 Pulse Rate 110 H 01/26/25 13:30 Respiratory Rate 16 01/26/25 13:30 Blood Pressure 153/95 H 01/26/25 13:30 Pulse Oximetry 99 01/26/25 13:30 Oxygen Delivery Room Air 01/26/25 13:30 MDM - Skin/Abscess/Foreign Bdy MDM Narrative Medical decision making narrative: Patient presents with concern for perineal abscess. On my exam, the anus itself appears normal and intact, without signs of abscess, 1 cm above the anus is in linear incision without surrounding erythema or drainage. CT pelvis thankfully without any abscess. Discussed with patient, will start him on Bactrim at this time and urged him to follow-up with general surgeon in the next few days. Patient agreeable to this plan with return precautions. Lab Data 01/26/25 14:20 01/26/25 14:20 Labs: Lab Results 01/26/25 Range/Units 14:20 WBC 8.7 (4.5-10.0) K/mm3 RBC 4.31 L (4.6-6.20) M/mm3 Hgb 13.7 L (14.0-18.0) g/dL Hct 40.6 L (42.0-52.0) % MCV 94.2 (80-100) fl MCH 31.8 (26-34) pg MCHC 33.7 (32-36) g/dl RDW 12.7 (11.5-14.5) % Plt Count 182 (150-375) k/mm3 MPV 8.8 (7.4-10.4) fl Immature Gran % (Auto) 0.2 (0-0.5) % Neut % (Auto) 57.3 (45.5-73.1) % Lymph % (Auto) 32.5 (18.3-44.2) % Reeves % (Auto) 5.7 (2.6-8.5) % Eos % (Auto) 3.8 (0-4.4) % Baso % (Auto) 0.5 (0.2-1.2) % Lymph # (Auto) 2.84 (0.9-3.2) K/mm3 Reeves # (Auto) 0.5 (0.1-0.6) K/mm3 Eos # (Auto) 0.3 (0-0.3) K/mm3 Baso # (Auto) 0.0 (0.0-0.1) K/mm3 Abs Immat Gran (auto) 0.02 (0.00-0.031) K/mm3 Absolute Neuts (auto) 5.0 (1.3-6.7) K/mm3 Absolute Nucleated RBC 0.000 (0.0-0.012) K/mm3 Nucleated RBC % 0.0 (0.0-0.2) % Sodium 140 (137-145) mmol/L Potassium 3.9 (3.4-5.0) mmol/L Chloride 104 (98-107) mmol/L Carbon Dioxide 26 (22-30) mmol/L Anion Gap 10 (4-12) mmol/L BUN 8 L (9-20) mg/dL Creatinine 1.04 (0.7-1.3) mg/dL Estim Creat Clear Calc 84 ml/min Estimated GFR > 60 (59 - ) Glucose 95 (65-110) mg/dL Calcium 9.1 (8.4-10.2) mg/dL Discharge Plan Discharge Clinical Impression: Cellulitis Patient Disposition: Home Condition: Stable Instructions: Cellulitis (ED) Additional Instructions: Please follow-up with Dr. Boyer, take the antibiotics as prescribed, if your symptoms get worse, please come back to the ER. You can pull the packing tomorrow. Patient Language: Nepali Prescriptions: New sulfamethoxazole-trimethoprim [Bactrim DS] 800-160 mg tablet 1 tablet PO Q12H Qty: 10 0RF No Action alprazolam [Xanax] 0.25 mg tablet 0.25 mg PO QHS PRN (Reason: Anxiety) docusate sodium 100 mg tablet 100 mg PO TID Dovato 50-300 mg tablet 1 tablet PO HS Mounjaro 10 mg/0.5 mL pen injector 10 mg subcut WEEKLY simethicone 125 mg capsule 125 mg PO QID Qty: 20 0RF Rx Instructions: administer after meals and at bedtime dicyclomine 20 mg tablet 20 mg PO QID Qty: 20 0RF Follow-up/Referrals: Mayito Boyer MD [Physician] - 2 Days UNKNOWN,DOCTOR [Primary Care Provider] -
== END 2025-01-26 16:14 | disposition home or self-care (01) ==
PROVIDERS: Emergency Provider Emergency Medicine
DX: K61.0 Anal abscess (principal); B20 Human immunodeficiency virus [HIV] disease; Z87.442 Personal history of urinary calculi; F41.9 Anxiety disorder, unspecified
CPT/HCPCS: 36415; 72193; 80048; 85025; 99284; Q9967